=== PATIENT | female | born 2000 | race Caucasian/White ===

== ENCOUNTER 2024-12-15 13:22 | Outpatient (CLI) | payer SELFPAY ==
--- OUTSIDE RECORDS SUMMARY | 2024-11-08 13:00 | XMS_ITS | Encounter Summary ---
Author Organization Healthcare Address [address] [place] [address] Care Team Providers Care Private Wealth Advisor Name Role Phone Susie Shoemaker DO Primary Care Provider Reason for Referral * Imaging (Routine) - Pending Review Specialty Diagnoses / Procedures Referred By Contac t Referred To Contact Radiology Diagnoses Swelling of lower extremity Procedures CT Venogram Abdomen Pelvis Monico Staley MD [address] [address] Phone: tel: fax: Referral ID Status Reason Start Date Expiration Date V isits Requested Visits Authorized [id number] Pending Review 11/08/2024 05/10/2026 1 1 * Consultation (Routine) - Closed Specialty Diagnoses / Procedures Referred By Contac t Referred To Contact General, Endocrine & Minimally Invasive Surgery / Bariatrics Diagnoses Morbid obesity with BMI of 40.0-44.9, adult (CMS/[facility]) Monico Staley MD [address] [facility] [address] [place] [address] Phone: tel: fax: [facility] [address] [place] [address] Phone: tel: Referral ID Status Reason Start Date Expiration Date V isits Requested Visits Authorized [id number] Closed Specialty Services Required 11/08/2024 05/10/2026 1 1 Scheduling Instructions Consult to discuss weight loss and possible surgery Dr. 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 Nina Hernández, CATEGORY DEVELOPMENT MANAGER [address] [facility] [address] [place] [address] Phone: tel: fax: Referral ID Status Reason Start Date Expiration Date V isits Requested Visits Authorized [id number] Closed Consult and Treat 09/21/2024 03/23/2026 1 1 Encounter Details Date Type Department Care Team (Latest Contact Info) Description 11/08/2024 1:00 PM EDT Office Visit [facility] [address] [facility] 5th Floor [address] [place] [address] Monico Staley MD [address] [facility] [address] [place] [address] Morbid obesity with BMI of 40.0-44.9, adult (CMS/HCC) (Primary Dx); Swelling of lower extremity; Left leg swelling Social History Tobacco Use Types Packs/Day Years Used Date Smoking Tobacco: Never Passive Smoke Exposure: Never Smokeless Tobacco: Never Comments:Vape Alcohol Use Standard Drinks/Week Comments Not Currently 0 (1 standard drink = 0.6 oz pur e alcohol) PHQ-2 Answer Date Recorded Patient Health Questionnaire-2 Score 0 08/16/2024 [place] Depression Scale Answer Date Recorded [place] Depression Scale Total 2 04/02/2023 The thought of harming myself has occurred to me . Never 04/02/2023 PHQ-9 Answer Date Recorded Patient Health Questionnaire-9 Score 0 08/16/2024 AUDIT-C Answer Date Recorded Frequency of Alcohol Consumption Not on file 11/08/2024 Q2: How many drinks containi ng alcohol do you have on a typical day when you are drinking? Patient does not drink Frequency of Binge Drinking Not on file 10/19 PHQ-2A Answer Date Recorded Patient Health Questionnaire-2 Score 0 03/18/2023 Comments No Sex and Gender Information Value Date Recorded Sex Assigned at Not on file Legal Sex Female 8:50 PM EDT Gender Identity Not on file Sexual Orientation Not on file documented as of this encounter Last Filed Vital Signs Vital Sign Reading Time Taken Comments Blood Pressure 115/76 11/08/2024 12:49 PM EDT Pulse 81 11/08/2024 12:42 PM EDT Temperature 36.9 C (98.4 F) 11/08/2024 12:42 PM EDT Respiratory Rate - - Oxygen Saturation 97% 11/08/2024 12:42 PM EDT Inhaled Oxygen Concentration - - Weight 107 kg (236 lb 12.4 oz) 11/08/2024 12:42 PM EDT Height 160 cm (5' 3 ) 11/08/2024 12:42 PM EDT Body Mass Index 41.94 11/08/2024 12:42 PM EDT documented in this encounter Functional Status documented as of this encounter Miscellaneous Notes * Progress Notes - Meagan Greene MD - 11/08/2024 1:00 PM EDT Dear Susie Shoemaker, , HPI We had the pleasure of seeing your patient, Zuly Mendoza, in clinic today as a consult for possible May Thurner syndrome. Patient recently underwent pelvic MRI as workup for pelvic and joint pain, which was read as heterogenous signal within focally ectatic L common iliac vein measuring upto 2.9cm. She was referred to Vascular surgery for further evaluation. Patient states that she has had fairly chronic back pain and lower extremity joint pain. She follows with Rheumatology and reports that they think she has Lupus. She notes that almost every day she develops swelling in her bilateral legs by the end of the day, and the left leg is always worse than the right. She states that about 1 month ago she had severe pain in her left hip and upper leg and was seen at an ED and had a CT scan done. She denies being diagnosed with DVT and states that she was sent home from the ED and her symptoms resolved. She has never had a DVT in the past, and does not take blood thinners. I personally and independently reviewed the MR Images from today's visit which showed: some Her chronic comorbid conditions that impact our treatment planning include: Obesity - needs improvement, with a last BMI of: Body mass index is 41.94 kg/m??. The following portions of the chart were reviewed this encounter and updated as appropriate: Subjective Review of Systems A 14 point review of systems was completed and is negative except what is stated in HPI/interval history. Objective Physical Exam Constitutional: well developed, well nourished, and in no acute distress Eye: equal and round Ears, Nose, Throat: normal atraumatic, no neck masses Respiratory: No chest wall tenderness., symmetric chest rise, room air Cardiac: Heart regular rate and rhythm Musculoskeletal: normal strength, tone, and muscle mass, no deformities, L leg mid-claf circumference 51cm, R leg 50cm Psychiatric: oriented to time, place and person, mood and affect are within normal limits Neurologic: normal and motor intact Skin: [place], warm, well perfused Assessment/Plan In Summary: Zuly Mendoza is a 24 y.o. year old female who we saw today in clinic in consultation for possible May Thurner syndrome. Patient has had persistent intermittent pelvic and left legpain as well as bilateral lower extremity swelling, L>R which could possibly be attributed to May Thurner. The MR is not the idea test to evaluate the venous system. We discussed the physiology ofMay Thurner, and the possible treatments. Given she is of child- bearing age, we would like to avoidstenting the iliac vein. We also discussed that her weight is likely contributing to the compression on her venous system, and that weight loss alone may alleviate her symptoms. - follow up in [address] venogram of Abdomen and pelvis - referral to bariatric surgery - patient was given measuring tape to measure her bilateral calves and record measurements - continue to elevate the legs as much as possible and use compression stockings Below is a summary of the diagnoses addressed in today's visit and any associated orders: Problem List Items Addressed This Visit Left leg swelling Other Visit Diagnoses Morbid obesity with BMI of 40.0-44.9, adult ([facility]) - Primary Relevant Orders Ambulatory referral to Bariatric Surgery ([facility]) Swelling of lower extremity Relevant Orders CT Venogram Abdomen Pelvis We will see her back for: Follow up in about 3 months (around 02/08/2025). The patient was counseled on the importance of: - proper nutrition, exercise and maintaining a healthy weight. Weight loss Cosigned by Monico Staley MD at 11/10/2024 2:50 PM EDT Associated attestation - Monico Staley MD - 11/10/2024 2:50 PM EDT I saw and evaluated the patient with the resident/fellow. I discussed the case with the resident/fellow and agree with the findings and plan as documented. documented in this encounter Plan of Treatment Upcoming Encounters Date Type Department Care Team (Late st Contact Info) Description 02/21/2025 7:50 AM EST Office Visit [facility] [address] [place] [address] Nina Hernández APRN [address] [place] [address] 02/22/2025 10:40 AM EST Office Visit [facility] [address] [place] [address] Monico Staley MD [address] [facility] [address] [place] [address] 05/31/2025 9:45 AM EST Procedure Visit Obstetrics & Gynecology [address] [place] [address] Kehinde Bowie MD [address] [place] [address] Scheduled Orders Name Type Priority Associated Diagnoses Orde r Schedule CT Venogram Abdomen Pelvis Imaging Routine Swelling of lower extremity 1 Occurrences starting 11/08/2024 until 02/08/2025 Scheduled Referrals Name Type Priority Associated Diagnoses Order Schedule Ambulatory referral to Bariatric Surgery ([facility]) Outpatient Referral Routine Morbid obesity with BMI of 40.0-44.9, adult ([facility]) Expected: 11/08/2024 (Approximate), Expires: 05/12/2026 documented as of this encounter Goals Goal Patient Goal Type Associated Problems Recent Progress Patient-Stated? Author Delayed Delivery Care Plan CPM S22 PP LABOR (OBSTETRICS) No Open Scheduling, Background documented as of this encounter Visit Diagnoses Diagnosis Morbid obesity with BMI of 40.0-44.9, adult ([facility])- Primary Swelling of lower extremity Left leg swelling documented in this encounter Additional Health Concerns Active Problems Noted Date Diagnosed Date CPM S22 PP LABOR (OBSTETRICS) 12/06/2022 Assessment Noted Time PHQ-9 Depression Total Score: 0 08/17/19 25 7:28 AM EDT A fall risk assessment has been complete d for the patient 08/16/2024 7:28 AM EDT A Body Mass Index follow-up plan has been documented for the patient 11/10/2024 2:50 PM EDT documented as of this encounter Care Teams Private Wealth Advisor Relationship Specialty Start Date End Date Susie Shoemaker DO [address] [place] [address] PCP - General 02/07/21 documented as of this encounter
--- OUTSIDE RECORDS SUMMARY | 2024-12-01 09:30 | XMS_ITS | Encounter Summary ---
Author Organization [facility] Address [address] [place] [address] Care Team Providers Care Datastage Consultant Name Role Phone Susie Shoemaker DO Primary Care Provider [phone] Reason for Visit * Reason Comments Obesity * Pre-determination (Routine) - Closed Specialty Diagnoses / Procedures Referred By Contcyndy t Referred To Contact Bariatrics Diagnoses Morbid (severe) obesity due to excess calories Procedures WI LAP, VANESA RESTRICT PROC, LONGITUDINAL GASTRECTOMY WI LAP GASTRIC BYPASS/KRISTEL-EN-Y [facility] [address] [place] [address] Phone: tel: [facility] [address] [place] [address] Phone: tel: Referral ID Status Reason Start Date Expiration Date Visits Re quested Visits Authorized [id number] Closed 11/21/2024 05/23/2026 1 1 Encounter Details Date Type Department Care Team (Late st Contact Info) Description 12/01/2024 9:30 AM EDT Office Visit [facility] [address] [place] [address] Cari Douglas, HARDWARE INSTALLATION COORDINATOR [address] [phone] Obesity, Class III, BMI 40-49.9 (morbid obesity) (Primary Dx); Multiple joint pain; Shortness of breath on exertion; Gastroesophageal reflux disease, unspecified whether esophagitis present; Fatigue, unspecified type Social History Tobacco Use Types Packs/Day Years Used Date Smoking Tobacco: Never Passive Smoke Exposure: Never Smokeless Tobacco: Former Quit: 11/22/2024 Tobacco Cessation:Counseling Given: Not Answered Comments:Stopped vaping nicotine 11/22 Alcohol Use Standard Drinks/Week Comments Not Currently 0 (1 standard drink = 0.6 oz pur e alcohol) PHQ-2 Answer Date Recorded Patient Health Questionnaire-2 Score 0 12/01/2024 [place] Depression Scale Answer Date Recorded [place] Depression Scale Total 2 04/02/2023 The thought of harming myself has occurred to me . Never 04/02/2023 PHQ-9 Answer Date Recorded Patient Health Questionnaire-9 Score 0 12/01/2024 AUDIT-C Answer Date Recorded Q1: How often do you have a drink containing alcohol? Never 12/01/2024 Q2: How many drinks containi ng alcohol do you have on a typical day when you are drinking? Patient does not drink Q3: How often do you have si x or more drinks on one occasion? Never 12/01/2024 PHQ-2A Answer Date Recorded Patient Health Questionnaire-2 Score 0 03/18/2023 Comments No Sex and Gender Information Value Date Recorded Sex Assigned at Not on file Legal Sex Female 8:50 PM EDT Gender Identity Not on file Sexual Orientation Not on file documented as of this encounter Last Filed Vital Signs Vital Sign Reading Time Taken Comments Blood Pressure 110/75 12/01/2024 9:15 AM EDT Pulse 50 12/01/2024 9:15 AM EDT Temperature - - Respiratory Rate 16 12/01/2024 9:15 AM EDT Oxygen Saturation 97% 12/01/2024 9:15 AM EDT Inhaled Oxygen Concentration - - Weight 102 kg (225 lb) 12/01/2024 9:15 AM EDT Height 158.8 cm (5' 2.5 ) 12/01/2024 9:15 AM EDT Body Mass Index 40.5 12/01/2024 9:15 AM EDT documented in this encounter Functional Status * AUDIT-C Score Answer Date of Assessment Author 0 12/01/2024 9:15 AM EDT Teodora Barrow * Question Answer Date of Assessment Author Q1: How often do you have a drink containing alcohol? Never 12/01/2024 9:15 AM Teodora Engel Q2: How many drinks containing alcohol do you have on a typical day when you are drinking? Patient does not drink 12/01/2024 9:15 AM Teodora Engel Q3: How often do you have six or more drinks on one occasion? Never 12/01/2024 9:15 AM EDT Teodora Barrow * Over the past 2 weeks, how often have you been bothered by any of the following problems? Question Answer Date of Assessment Author Little interest or pleasure in doing things Not at all 12/01/2024 9:12 AM Teodora Arce Feeling down, depressed, or hopeless Not at all 12/01/2024 9:12 AM Teodora Engel Patient Health Questionnaire-2 Score 0 12/01/2024 9:12 AM AMANDAT Teodora Barrow * Question Answer Date of Assessment Author Trouble falling or staying asleep, or sleeping too much Not at all 12/01/2024 9:12 AM Teodora Engel Feeling tired or having little energy Not at all 12/01/2024 9:12 AM Teodora Engel Poor appetite or overeating Not at all 12/01/2024 9: 12 AM AMANDAT Teodora Barrow Feeling bad about yourself - or that you are a failure or have let yourself or your family down Not at all 12/01/2024 9:12 AM Teodora Engel Trouble concentrating on things, such as reading the newspaper or watching television Not at all 12/01/2024 9:12 AM Teodora Engel Moving or speaking so slowly that other people could have noticed? Or the opposite - being so fidgety or restless that you have been moving around a lot more than usual. Not at all 12/01/2024 9:12 AM Teodora Engel Thoughts that you would be better off or hurting yourself in some way Not at all 12/01/2024 9:12 AM AMANDAT Teodora Barrow Patient Health Questionnaire-9 Score 0 12/01/2024 9:12 AM AMANDAT Teodora Barrow * If you checked off any problems on this questionnaire so far, Question Answer Date of Assessment Author How difficult have these problems made it for you to do your work, take care of things at home, or get along with other people? Not difficult at all 12/01/2024 9:12 AM AMANDAT Teodora Barrow documented as of this encounter Miscellaneous Notes * Progress Notes - Cari Douglas, HARDWARE INSTALLATION COORDINATOR - 12/01/2024 9:30 AM EDT Reason for Visit Obesity HPI History as per patient report is for long standing struggle with morbid obesity and related co-morbidities as indicated. Dietary history per previous documentation. Patient is seeking medical evaluation for medical weight loss. Patient is being seen today in clinic. 24 y/o female presents to [facility]. She is interested in medical weight loss. 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 Auto immune disease, GERD, joint pain, fatigue, SOA with exertion, anxiety, depression and Bipolar. She has acid reflux every other day and takes Famotidine PRN. She has some dysphagia with foods at times. She denies abdominal pain, nausea or vomiting. She denies fevers or chi lls. She has some lower extremity edema. She has never had an EGD. She generally takes NSAIDS twiceper week. Prior abdominal sx: laparoscopic appendectomy and laparoscopic ovarian cyst removal. Pt denies hx: pancreatitis or MENS x 2 Pt does not drink any alcohol Quit vaping 11/22 Current Weight: 102 kg (225 lb) Height: 1.588 m (5' 2.5 ) BMI: 40.50 kg/m?? Highest Weight: 235 Lowest Weight: 150 Greatest Weight Loss Achieved in a Single Diet Attempt: 10 [place] body weight: 51.3 kg (112 lb 15.8 oz) Adjusted ideal body weight: 71.6 kg (157 lb 12.7 oz) Unsupervised Diet Attempts: High Protein, Calorie Counting, and Low Carbohydrate Supervised Diet Attempts: phentermine Aldo Mendoza has been overweight for at least 6 years. The most weight loss was 10 pounds but it was unable to be maintained. Past Medical History[1] Surgical History[2] Allergies[3] Current Outpatient Medications Medication Instructions baclofen (LIORESAL) 10 mg, 3 times daily benzonatate (Tessalon) 200 MG capsule PLEASE SEE ATTACHED FOR DETAILED DIRECTIONS cetirizine (ZYRTEC) 10 mg, Daily escitalopram (LEXAPRO) 10 mg, Oral, Daily fluticasone (Flonase) 50 MCG/ACT nasal spray 1 spray, Daily PRN hydroxychloroquine (PLAQUENIL) 200 mg, Oral, 2 times daily levonorgestrel (Mirena) 20 MCG/DAY IUD 1 each, Once Mounjaro 2.5 mg, Subcutaneous, Weekly norgestimate-ethinyl estradiol (Sprintec 28) 0.25-35 MG-MCG tablet 1 tablet, Oral, Daily Nurtec 75 MG orally disintegrating tablet 1 TABLET BY MOUTH NEEDED (QTY 8 [EIGHT]) predniSONE (Deltasone) 5 MG tablet Take 1-3 tabs as needed for flares. SUMAtriptan (Imitrex) 50 MG tablet TAKE 1 TABLET BY MOUTH AT HEADACHE ONSET. MAY REPEAT IN 2 HRS. MAX 4 TABS PER DAY Topiramate ER 25 MG capsule sustained-release 24 hr 1 tablet, Daily traMADol (ULTRAM) 50 mg, 3 times daily Wegovy 0.25 mg, Subcutaneous, Weekly Family History[4] Social History[5] ROS 14 point ROS completed and negative except as noted in the HPI Objective Vitals: 12/01/24 0915 BP: 110/75 Pulse: 50 Resp: 16 SpO2: 97% PHYSICAL EXAM Constitutional: well developed, well nourished, in no acute distress, and obese Eyes: equal, round, and reactive Ears, Nose, Throat: normal atraumatic, no neck masses Respiratory: Normal Effort, Normal Rate Cardiac: Heart regular rate and rhythm Abdomen: Soft, non-tender; no organomegaly or masses. Genitourinary: not indicated Musculoskeletal: normal strength, tone, and muscle mass, no deformities Psychiatric: oriented to time, place and person, mood and affect are within normal limits Neurologic: motor intact and no focal deficits Skin: [place], warm, well perfused Assessment/Plan Diagnosis Plan 1. Obesity, Class III, BMI 40-49.9 (morbid obesity) CBC and Differential Vitamin B1, Whole Blood Protime-INR Serum Drug Screen Nicotine and Metabolites, Serum or Plasma, Quantitative Comprehensive Metabolic Panel, Plasma Free T4, Plasma Hemoglobin A1c Iron, Plasma Lipid Profile, Plasma Thyroid Stimulating Hormone, Plasma Vitamin B12, Serum Vitamin D 25 Hydroxy Vitamin E, Serum or Plasma Vitamin K Vitamin A (Retinol), Serum or Plasma Folate, Serum 2. Multiple joint pain CBC and Differential Vitamin B1, Whole Blood Protime-INR Serum Drug Screen Nicotine and Metabolites, Serum or Plasma, Quantitative Comprehensive Metabolic Panel, Plasma Free T4, Plasma Hemoglobin A1c Iron, Plasma Lipid Profile, Plasma Thyroid Stimulating Hormone, Plasma Vitamin B12, Serum Vitamin D 25 Hydroxy Vitamin E, Serum or Plasma Vitamin K Vitamin A (Retinol), Serum or Plasma Folate, Serum 3. Shortness of breath on exertion CBC and Differential Vitamin B1, Whole Blood Protime-INR Serum Drug Screen Nicotine and Metabolites, Serum or Plasma, Quantitative Comprehensive Metabolic Panel, Plasma Free T4, Plasma Hemoglobin A1c Iron, Plasma Lipid Profile, Plasma Thyroid Stimulating Hormone, Plasma Vitamin B12, Serum Vitamin D 25 Hydroxy Vitamin E, Serum or Plasma Vitamin K Vitamin A (Retinol), Serum or Plasma Folate, Serum 4. Gastroesophageal reflux disease, unspecified whether esophagitis present CBC and Differential Vitamin B1, Whole Blood Protime-INR Serum Drug Screen Nicotine and Metabolites, Serum or Plasma, Quantitative Comprehensive Metabolic Panel, Plasma Free T4, Plasma Hemoglobin A1c Iron, Plasma Lipid Profile, Plasma Thyroid Stimulating Hormone, Plasma Vitamin B12, Serum Vitamin D 25 Hydroxy Vitamin E, Serum or Plasma Vitamin K Vitamin A (Retinol), Serum or Plasma Folate, Serum 5. Fatigue, unspecified type CBC and Differential Vitamin B1, Whole Blood Protime-INR Serum Drug Screen Nicotine and Metabolites, Serum or Plasma, Quantitative Comprehensive Metabolic Panel, Plasma Free T4, Plasma Hemoglobin A1c Iron, Plasma Lipid Profile, Plasma Thyroid Stimulating Hormone, Plasma Vitamin B12, Serum Vitamin D 25 Hydroxy Vitamin E, Serum or Plasma Vitamin K Vitamin A (Retinol), Serum or Plasma Folate, Serum Pt is interested in GLP1 medication. Denies hx pancreatitis or MENS x 2. She is not sure if medication is covered by insurance. Discussed side effect potential including but not limited to: abdominalpain, nausea, vomiting, constipation and injection site reaction. Will see dietitian. Follow up in 1 month. Follow up in about 1 month (around 01/01/2025). [1] Past Medical History: Diagnosis Date COVID-19 10/02/2020 Elevated C-reactive protein (CRP) Migraines Personal history of other diseases of the respiratory system History of influenza [2] Past Surgical History: Procedure Laterality Date APPENDECTOMY N/A Appendectomy from [facility] KNEE SURGERY N/A Knee Surgery from [facility] OVARIAN CYST REMOVAL Right 2014 TONSILLECTOMY N/A Tonsillectomy from [facility] [3] No Known Allergies [4] Family History Problem Relation Name Age of Onset Autoimmune disease Mother Hypertension, benign Father Hyperlipidemia Father Graves' disease Father No Known Problems Sister Hypertension, benign Brother No Known Problems Son No Known Problems Mother's Sister Hypertension, benign Father's Sister Migraines Father's Sister Thyroid disease Father's Sister Kidney disease Maternal Grandmother Mental illness Maternal Grandmother Melanoma Maternal Grandmother Hypertension, benign Maternal Grandfather Hyperlipidemia Paternal Grandmother Kidney disease Paternal Grandmother Hypertension, benign Paternal Grandmother Heart failure Paternal Grandmother Heart attack Paternal Grandfather [5] Social History Tobacco Use Smoking status: Never Passive exposure: Never Smokeless tobacco: Former Quit date: 11/22/2024 Tobacco comments: Stopped vaping nicotine 11/22 Vaping Use Vaping status: Former Start date: 04/20/2015 Quit date: 11/22/2024 Devices: Disposable Substance Use Topics Alcohol use: Not Currently Drug use: Never * Progress Notes - Rossy Coles LD - 12/01/2024 9:30 AM EDT Aldo Mendoza, 2000, presents today for consultation for the medical weight loss program. Initial dietitian consultation to initiate medically supervised weight loss program. The patient will be participating in medically supervised weight loss program with short-term and long-term goalcreation. [place]ita Scale Results: Consult Height: 5 ft 2.5 in Consult Weight: 225.0 lbs. Fat %: 48.3% Fat Mass: 108.6 lbs. FFM: 116.4 lbs. TBW: 85.4 lbs. TBW %: 38.0% BMR: 1703 kcal BMI: 40.5 kg/m?? [place] Body Weight: 51.3 kg (112 lb 15.8 oz) Adjusted [place] Body Weight: 71.6 kg (157 lb 12.7 oz) body composition results were discussed and reviewed to the patient Patient Education: The patient was informed of mandatory nutrition class to be educated on lifestyle changes to be successful in the medical weight loss program; was signed up for the 12/15/2024 class. The patient was informed about the importance of a high protein, low carbohydrate, and low fat dietary lifestyle change. The patient was informed to consume a protein supplement if a meal is skipped. The patient was informed to take a multivitamin daily (once she is taking the weight loss medication). The patient was informed of fiber-rich carbohydrates, such as beans, corn, whole grains, fruits, and non-starchy vegetables; encouraged to aim for 25 grams of fiber daily. Short Term Goal Evaluation in Preparation for Next Visit: The patient instructed to track consumption consistently using the eMinor nia for one week using regular eating habits and send report [email or web address] e-mail to be reviewed. The nutritional recommendations will be sent backto begin lifestyle adjustments after review of typical eating pattern. documented in this encounter Plan of Treatment Upcoming Encounters Date Type Department Care Team (Late st Contact Info) Description 02/21/2025 7:50 AM EST Office Visit [facility] Medicine Specialties [address] [place] [address] Nina Hernández APRN [address] [facility] [address] [place] [address] 02/22/2025 10:40 AM EST Office Visit [facility] Comprehensive [facility] [address] [place] [address] Monico Staley MD [address] [facility] [address] [place] [phone] 05/31/2025 9:45 AM EST Procedure Visit [facility]necology [address] [place] [address] Kehinde Bowie MD [address] [place] [address] documented as of this encounter Goals Goal Patient Goal Type Associated Problems Recent Progress Patient-Stated? Author Delayed Delivery Care Plan CPM S22 PP LABOR (OBSTETRICS) No Open Scheduling, Background documented as of this encounter Results * Folate, Serum (12/01/2024 10:22 AM EDT) Folate, Serum 13.5 >4.6 ng/mL 12/01/2024 1:40 PM EDT [facility] Blood Venous blood specimen / Unknown Venipuncture / Unknown 12/01/2024 10:22 AM EDT 12/01/2024 10:25 AM EDT Cari Douglas HARDWARE INSTALLATION COORDINATOR LAB BLOOD ORDERABLES Mary Anne l Result [facility] [address] [place] [address] * Vitamin A (Retinol), Serum or Plasma (12/01/2024 10:22 AM EDT) Vitamin A (Retinyl Palmitate) <0.02 0.00 - 0.10 mg/L 12/04/2024 11:57 AM EDT [facility] ([facility] VITAMIN A,SER/VENUS-INTE RPRETATION Normal 12/04/2024 11:57 AM EDT [facility] Vitamin A (Retinol) 0.48 0.30 - 1.20 mg/L 12/04/2024 11:57 AM EDT [facility] Fasting greater than or equal to 12 hours? 12/04/2024 11:57 AM EDT [facility] Blood Venous blood specimen / Unknown Venipuncture / Unknown 12/01/2024 10:22 AM EDT 12/01/2024 10:25 AM EDT Narrative [facility]) - 12/04/2024 11:57 AM EDT This test was developed and its performance characteristics determined by [facility]. It has not been cleared or approved by the [place] Food and Drug Administration. This test was performed in a CLIA certified laboratory and is intended for clinical purposes. Performed By: [place] [address] Sample Cutter: Maynor Scott MD, PhD CLIA Number: [id number] Cari Douglas APRN LAB BLOOD ORDERABLES Mary Anne l Result Performing Organization Address City/[facility]/ZIP Co de Phone Number [facility] ([facility]) [address] [place] [address] * Vitamin K (12/01/2024 10:22 AM EDT) [facility] VITAMIN K RESULT 0.44 0.22 - 4.88 nmol/L 12/05/2024 3:17 PM EDT [facility] ([facility]) Serum Venous blood specimen / Unknown 12/01/2024 10:22 AM EDT 12/01/2024 10:25 AM EDT Narrative [facility]) - 12/05/2024 3:17 PM EDT INTERPRETIVE INFORMATION: Vitamin K1, Serum Vitamin K concentration is reported as nanomoles per liter (nmol/L). To convert concentration to nanograms per milliliter (ng/mL), multiply the result by 0.45. This test was developed and its performance characteristics determined by [facility]. It has not been cleared or approved by the [place] Food and Drug Administration. This test was performed in a CLIA certified laboratory and is intended for clinical purposes. Performed By: [facility] [address] [place] [address] Sample Cutter: Maynor Scott MD, PhD CLIA Number: [id number] Cari Douglas APRN LAB BLOOD ORDERABLES Mary Anne l Result Performing Organization Address City/[facility]/ZIP Co de Phone Number [facility] ([facility]) [address] [place] [address] * Vitamin E, Serum or Plasma (12/01/2024 10:22 AM EDT) Vitamin E (Alpha-Tocophe rol) 7.9 5.5 - 18.0 mg/L 12/04/2024 11:57 AM EDT [facility] ([facility]) Vitamin E (Gamma-Tocophe rol) 0.9 0.0 - 6.0 mg/L 12/04/2024 11:57 AM EDT [facility] ([facility]) Fasting greater than or equal to 12 hours? 12/04/2024 11:57 AM EDT [facility] ([facility]) Blood Venous blood specimen / Unknown Venipuncture / Unknown 12/01/2024 10:22 AM EDT 12/01/2024 10:25 AM EDT Narrative [facility] ([facility]) - 12/04/2024 11:57 AM EDT This test was developed and its performance characteristics determined by [facility]. It has not been cleared or approved by the US Food and Drug Administration. This test was performed in a CLIA certified laboratory and is intended for clinical purposes. Performed By: [facility] [address] [place] [address] Sample Cutter: Maynor Scott MD, PhD CLIA Number: [id number] Cari Douglas HARDWARE INSTALLATION COORDINATOR LAB BLOOD ORDERABLES Mary Anne cancino Result [facility]) [address] [id number] * Vitamin D 25 Hydroxy (12/01/2024 10:22 AM EDT) Pathologist [facility] Vitamin D 25 Hydroxy 29.7 20.0 - 80.0 ng/mL 12/01/2024 1:58 PM EDT [facility] Blood Venous blood specimen / Unknown Venipuncture / Unknown 12/01/2024 10:22 AM EDT 12/01/2024 10:25 AM EDT Narrative [facility] - 12/01/2024 1:58 PM EDT Testing performed on [employer], standardized against NIST SRM 2972. When testing samples from patients whose predominant form of vitamin D is vitamin D2, such as patients receiving vitamin D2 supplementation, results that are subtherapeutic should be confirmed with another method, such as LC-MS/MS, before being used for patient management. Vitamin D, 25-Hydroxy reference range, age 18 years and up: Deficiency: <12 ng/mL Insufficiency: 12 to 19 ng/mL Sufficiency: 20 to 80 ng/mL Possible toxicity: >100 ng/mL Cari Douglas HARDWARE INSTALLATION COORDINATOR LAB BLOOD ORDERABLES Mary Anne l Result Performing Organization Address City/[facility]/ZIP Co de Phone Number [facility] [address] [place] [address] * Vitamin B12, Serum (12/01/2024 10:22 AM EDT) Vitamin B12, Serum 399 210 - 1,033 pg/mL 12/01/2024 1:40 PM EDT [facility] Blood Venous blood specimen / Unknown Venipuncture / Unknown 12/01/2024 10:22 AM EDT 12/01/2024 10:25 AM EDT Cari Douglas HARDWARE INSTALLATION COORDINATOR LAB BLOOD ORDERABLES Mary Anne l Result Performing Organization Address [facility] [place] [address] * Thyroid Stimulating Hormone, Plasma (12/01/2024 10:22 AM EDT) Thyroid Stimulating Hormone, Plasma 3.07 0.40 - 4.20 uIU/mL 12/01/2024 1:34 PM EDT [facility] Blood Venous blood specimen / Unknown Venipuncture / Unknown 12/01/2024 10:22 AM EDT 12/01/2024 10:25 AM EDT Narrative [facility] - 12/01/2024 1:34 PM EDT Trimester Specific Ranges TSH ( IU/mL) 1st Trimester 0.1 - 3.0 2nd Trimester 0.19 - 4.06 3rd Trimester 0.3 - 3.7 Cari Douglas HARDWARE INSTALLATION COORDINATOR LAB BLOOD ORDERABLES Mary Anne l Result Performing Organization Address City/[facility]/ZIP Co de Phone Number [facility] [address] [place] [address] * (ABNORMAL) Lipid Profile, Plasma (12/01/2024 10:22 AM EDT) Cholesterol, Plasma 185 <200 mg/dL 12/01/2024 1:34 PM EDT [facility] Comment: Cholesterol Reference Range (age >17 years): Desirable <200 mg/dL Borderline 200 to 239 mg/dL Undesirable >239 mg/dL HDL 56 >=50 mg/dL 12/01/2024 1:34 PM EDT [facility] Comment: HDL Cholesterol Reference Ranges (age >17 years): Female, acceptable > or = 50 mg/dL Male, acceptable > or = 40 mg/dL Triglycerides, Plasma 97 <150 mg/dL 12/01/2024 1:34 PM EDT [facility] Comment: Triglyceride Reference Range (age >17 years): Desirable: <150 mg/dL Borderline high: 150 to 199 mg/dL High: 200 to 499 mg/dL Very high: >499 mg/dL Increased risk of pancreatitis: >1000 mg/dL Cholesterol/HDL Ratio 3 12/01/2024 1:34 PM EDT [facility] LDL, Calculated 111(H) <100 mg/dL 1:34 PM EDT [facility] Comment: LDL Cholesterol Reference Range (age >17 years): Optimal: <100 mg/dL Near or above optimal: 100 - 129 mg/dL Borderline high: 130 - 159 mg/dL High: 160 - 189 mg/dL Very high: >189 mg/dL LDL Cholesterol Reference Range (age <18 years): Desirable: <110 mg/dL Borderline: 110 - 129 mg/dL Undesirable: >130 mg/dL LDL Cholesterol is calculated using the Dave/NIH equation. Fasting greater than or equal to 12 hours? Yes 12/01/2024 1:34 PM EDT [facility] Blood Venous blood specimen / Unknown Venipuncture / Unknown 12/01/2024 10:22 AM EDT 12/01/2024 10:25 AM EDT us Cari Douglas HARDWARE INSTALLATION COORDINATOR LAB BLOOD ORDERABLES Mary Anne cancino Result [facility] [address] [place] [address] * Iron, Plasma (12/01/2024 10:22 AM EDT) Iron, Plasma 76 30 - 160 ug/dL 12/01/2024 1:34 PM EDT [facility] Blood Venous blood specimen / Unknown Venipuncture / Unknown 12/01/2024 10:22 AM EDT 12/01/2024 10:25 AM EDT Cari Douglas HARDWARE INSTALLATION COORDINATOR LAB BLOOD ORDERABLES Mary Anne l Result Performing Organization Address [facility] Co de Phone Number [facility] [address] [place] [address] * Hemoglobin A1c (12/01/2024 10:22 AM EDT) Hemoglobin A1c 5.0 <5.7 % 12/01/2024 3:20 PM EDT [facility] Blood Venous blood specimen / Unknown Venipuncture / Unknown 12/01/2024 10:22 AM EDT 12/01/2024 10:25 AM EDT Narrative [facility] - 12/01/2024 3:20 PM EDT HA1C Interpretive Data: Diagnosis of Diabetes: Diabetic > or = 6.5% Pre-diabetic 5.7 to 6.4% Non-diabetic < or = 5.6% Glycemic Targets for Type I and Type II Diabetics: Non- Adults <7.0% Adults <6.0% Children and Adolescents <7.5% Source: [place] [employer]. Standards of medical care in diabetes,2017. Diabetes Care.2017:40 (suppl 1):S1-S135. Cari Douglas HARDWARE INSTALLATION COORDINATOR LAB BLOOD ORDERABLES Mary Anne l Result Performing Organization Address [facility]/ZIP Co de Phone Number [facility] [address] [place] [address] * Free T4, Plasma (12/01/2024 10:22 AM EDT) Free T4, Plasma 1.2 0.8 - 1.7 ng/dL 12/01/2024 1:34 PM EDT [facility] Blood Venous blood specimen / Unknown Venipuncture / Unknown 12/01/2024 10:22 AM EDT 12/01/2024 10:25 AM EDT Narrative [facility] - 12/01/2024 1:34 PM EDT Free T4 Trimester Specific Ranges 1st Trimester 0.9 - 1.50 ng/dL 2nd Trimester 0.7 - 1.40 ng/dL 3rd Trimester 0.7 - 1.24 ng/dL us Cari Douglas HARDWARE INSTALLATION COORDINATOR LAB BLOOD ORDERABLES Mary Anne cancino Result [facility] [address] [place] [address] * Comprehensive Metabolic Panel, Plasma (12/01/2024 10:22 AM EDT) Glucose, Plasma 86 74 - 99 mg/dL 12/01/2024 1:34 PM EDT [facility] BUN, Plasma 11 7 - 21 mg/dL 12/01/2024 1:34 PM EDT [facility] Creatinine, Plasma 0.76 0.60 - 1.10 mg/dL 12/01/2024 1:34 PM EDT [facility] BUN/Creatinine Ratio 14 12/01/2024 1:34 PM EDT [facility] Sodium, Plasma 137 136 - 145 mmol/L 12/01/2024 1:34 PM EDT [facility] Potassium, Plasma 4.0 3.6 - 4.9 mmol/L 12/01/2024 1:34 PM EDT [facility] Chloride, Plasma 104 97 - 107 mmol/L 12/01/2024 1:34 PM EDT [facility] CO2, Plasma 24 22 - 29 mmol/L 12/01/2024 1:34 PM EDT [facility] Anion Gap 9 6 - 16 mmol/L 12/01/2024 1:34 PM EDT [facility] Total Calcium, Plasma 9.5 8.9 - 10.2 mg/dL 12/01/2024 1:34 PM EDT [facility] Total Protein 7.2 6.3 - 7.9 g/dL 12/01/2024 1:34 PM EDT [facility] Albumin, Plasma 4.5 3.5 - 5.2 g/dL 12/01/2024 1:34 PM EDT [facility] AST, Plasma 15 10 - 35 U/L 12/01/2024 1:34 PM EDT [facility] ALT, Plasma 17 10 - 35 U/L 12/01/2024 1:34 PM EDT [facility] Alkaline Phosphatase, Plasma 73 35 - 104 U/L 12/01/2024 1:34 PM EDT [facility] Total Bilirubin, Plasma 0.3 0.2 - 1.1 mg/dL 12/01/2024 1:34 PM EDT [facility] eGFRcr 111.0 mL/min/1.7 3m*2 12/01/2024 1:34 PM EDT [facility] Comment:Reported eGFRcr in m L/min/1.73m2 is based the CKD-EPI 2020 equation that does not use a race coefficient. Blood Venous blood specimen / Unknown Venipuncture / Unknown 12/01/2024 10:22 AM EDT 12/01/2024 10:25 AM EDT us Cari Douglas HARDWARE INSTALLATION COORDINATOR LAB BLOOD ORDERABLES Mary Anne cancino Result [facility] [address] [place] [address] * Nicotine and Metabolites, Serum or Plasma, Quantitative (12/01/2024 10:22 AM EDT) NICOTINE <5 <5 ng/mL 12/05/2024 10:28 AM EDT [facility] Cotinine <5 <5 ng/mL 12/05/2024 10:28 AM EDT [facility] Blood Venous blood specimen / Unknown Venipuncture / Unknown 12/01/2024 10:22 AM EDT 12/01/2024 10:25 AM EDT Narrative [facility] - 12/05/2024 10:28 AM EDT Testing performed by LC-MS/MS at the [facility]. This test was developed and its performance characteristics determined by [facility]. This assay has not been cleared by the FDA. The laboratory is regulated under CLIA as qualified to perform high-complexity testing. This test is used for clinical purposes. us Cari Douglas HARDWARE INSTALLATION COORDINATOR LAB BLOOD ORDERABLES Mary Anne cancino Result [facility] [address] [place] [address] * Serum Drug Screen (12/01/2024 10:22 AM EDT) 9 Carboxy THC <5 <5 ng/mL 12/05/2024 4:17 PM EDT [facility] Alprazolam <5 <5 ng/mL 12/05/2024 4:17 PM EDT [facility] Amphetamine <10 <10 ng/mL 12/05/2024 4:17 PM EDT [facility] Benzolyecgonine <20 <20 ng/mL 4:17 PM EDT [facility] Buprenorphine <1.0 <1.0 ng/mL 12/05/2024 4:17 PM EDT [facility] Butalbital <50 <50 ng/mL 12/05/2024 4:17 PM EDT [facility] Clonazepam <5 <5 ng/mL 12/05/2024 4:17 PM EDT [facility] Codeine <5 <5 ng/mL 12/05/2024 4:17 PM EDT [facility] Diazepam <5 <5 ng/mL 12/05/2024 4:17 PM EDT [facility] Fentanyl <1 <1 ng/mL 12/05/2024 4:17 PM EDT [facility] Hydrocodone <2 <2 ng/mL 12/05/2024 4:17 PM EDT [facility] Hydromorphone <5 <5 ng/mL 12/05/2024 4:17 PM EDT [facility] Lorazepam <5 <5 ng/mL 12/05/2024 4:17 PM EDT [facility] MDA <10 <10 ng/mL 12/05/2024 4:17 PM EDT [facility] MDMA <10 <10 ng/mL 12/05/2024 4:17 PM EDT [facility] Meperidine <5 <5 ng/mL 12/05/2024 4:17 PM EDT [facility] Methadone <10 <10 ng/mL 12/05/2024 4:17 PM EDT [facility] Methadone Metabolite <10 <10 ng/mL 11/18 4:17 PM EDT [facility] Methamphetamine <10 <10 ng/mL 4:17 PM EDT [facility] Midazolam <5 <5 ng/mL 12/05/2024 4:17 PM EDT [facility] Morphine <2 <2 ng/mL 12/05/2024 4:17 PM EDT [facility] Norbuprenorphine <5 <5 ng/mL 12/06/19 4:17 PM EDT [facility] Nordiazepam <10 <10 ng/mL 12/05/2024 4:17 PM EDT [facility] Oxazepam <5 <5 ng/mL 12/05/2024 4:17 PM EDT [facility] Oxycodone <2 <2 ng/mL 12/05/2024 4:17 PM EDT [facility] Oxymorphone <2 <2 ng/mL 12/05/2024 4:17 PM EDT [facility] Phenobarbital <50 <50 ng/mL 12/05/2024 4:17 PM EDT [facility] Temazepam <5 <5 ng/mL 12/05/2024 4:17 PM EDT [facility] Tramadol <20 <20 ng/mL 12/05/2024 4:17 PM EDT [facility] Blood Venous blood specimen / Unknown Venipuncture / Unknown 12/01/2024 10:22 AM EDT 12/01/2024 10:25 AM EDT Narrative [facility] - 12/05/2024 4:17 PM EDT Test performed by LC-MS/MS at the [facility]. This test was developed and its performance characteristics determined by [facility]. It has not been cleared or approved by the FDA. The laboratory is regulated under CLIA as qualified to perform high-complexity testing. This test is used for clinical purposes. Carihollie Douglas APRN LAB BLOOD ORDERABLES Mary Anne l Result Performing Organization Address [facility] Co de Phone Number [facility] [address] [place] [address] * Protime-INR (12/01/2024 10:22 AM EDT) Prothrombin Time 14.0 12.0 - 14.3 sec LAB COAGULATION METHOD 12/01/2024 1:25 PM EDT [facility] INR 1.1 0.9 - 1.1 LAB COAGULATION METHOD 12/01/2024 1:25 PM EDT [facility] Blood Venous blood specimen / Unknown Venipuncture / Unknown 12/01/2024 10:22 AM EDT 12/01/2024 10:25 AM EDT Narrative [facility] - 12/01/2024 1:25 PM EDT OPTIMAL INR RANGES FOR PATIENT ON ORAL ANTICOAGULANT THERAPY Prevention of venous thromboembolism INR 2.0 to 3.0 In patients with heart disease: Atrial fibrillation INR 2.0 to 3.0 Valvular heart disease INR 2.0 to 3.0 Tissue heart valves INR 2.0 to 3.0 Mechanical prosthetic valves INR 2.5 to 3.5 Prevention of recurrent OH INR 2.5 to 3.5 Cari Douglas APRN LAB BLOOD ORDERABLES Mary Anne l Result Performing Organization Address City/[facility]/ZIP Co de Phone Number [facility] [address] [place] [address] * Vitamin B1, Whole Blood (12/01/2024 10:22 AM EDT) VITAMIN B1, WHOLE BLOOD 105 70 - 180 nmol/L 12/04/2024 8:36 AM EDT [facility]) Blood Venous blood specimen / Unknown Venipuncture / Unknown 12/01/2024 10:22 AM EDT 12/01/2024 10:25 AM EDT Narrative [facility]) - 12/04/2024 8:36 AM EDT INTERPRETIVE INFORMATION: Vitamin B1, Whole Blood This assay measures the concentration of thiamine diphosphate (TDP), the primary active form of vitamin B1. Approximately 90 percent of vitamin B1 present in whole blood is TDP. Thiamine and thiamine monophosphate, which comprise the remaining 10 percent, are not measured. This test was developed and its performance characteristics determined by [facility]. It has not been cleared or approved by the [place] Food and Drug Administration. This test was performed in a CLIA certified laboratory and is intended for clinical purposes. Performed By: [facility] [address] [place] [id number] Sample Cutter: Maynor Scott MD, PhD CLIA Number: [id number] Cari Douglas HARDWARE INSTALLATION COORDINATOR LAB BLOOD ORDERABLES Mary Anne l Result [facility] ([place] [address] [place] [id number] * CBC and Differential (12/01/2024 10:22 AM EDT) WBC Count 5.75 3.70 - 10.30 10*3/uL LAB HEMATOLOGY METHOD 12/01/2024 12:47 PM EDT [facility] RBC Count 4.69 3.90 - 5.20 10*6/uL LAB HEMATOLOGY METHOD 12/01/2024 12:47 PM EDT [facility] HGB 13.6 11.2 - 15.7 g/dL LAB HEMATOLOGY METHOD 12/01/2024 12:47 PM EDT [facility] HCT 42.5 34.0 - 45.0 % LAB HEMATOLOGY METHOD 12/01/2024 12:47 PM EDT [facility] Platelet Count 309 155 - 369 10*3/uL LAB HEMATOLOGY METHOD 12/01/2024 12:47 PM EDT [facility] MCV 91 79 - 98 fL LAB HEMATOLOGY METHOD 12/01/2024 12:47 PM EDT [facility] MCH 29.0 26.0 - 32.0 pg LAB HEMATOLOGY METHOD 12/01/2024 12:47 PM EDT [facility] MCHC 32.0 30.7 - 35.5 g/dL LAB HEMATOLOGY METHOD 12/01/2024 12:47 PM EDT [facility] RDW 13.1 11.5 - 14.5 % LAB HEMATOLOGY METHOD 12/01/2024 12:47 PM EDT [facility] MPV 10.9 8.8 - 12.5 fL LAB HEMATOLOGY METHOD 12/01/2024 12:47 PM EDT [facility] nRBC 0.0 <=0.0 per 100 WBCs LAB HEMATOLOGY METHOD 12/01/2024 12:47 PM EDT [facility] Differential Type Automated LAB HEMATOLOGY METHOD 12/01/2024 12:47 PM EDT [facility] Neutrophils % 55 % LAB HEMATOLOGY METHOD 12/01/2024 12:47 PM EDT [facility] Lymphocytes % 28 % LAB HEMATOLOGY METHOD 12/01/2024 12:47 PM EDT [facility] Monocytes % 10 % LAB HEMATOLOGY METHOD 12/01/2024 12:47 PM EDT [facility] Eosinophils % 5 % LAB HEMATOLOGY METHOD 12/01/2024 12:47 PM EDT [facility] Basophils % 1 % LAB HEMATOLOGY METHOD 12/01/2024 12:47 PM EDT [facility] Immature Granulocytes % 1 % LAB HEMATOLOGY METHOD 12/01/2024 12:47 PM EDT [facility] Neutrophils Absolute 3.20 1.60 - 6.10 10*3/uL LAB HEMATOLOGY METHOD 12/01/2024 12:47 PM EDT [facility] Lymphocytes Absolute 1.59 1.20 - 3.90 10*3/uL LAB HEMATOLOGY METHOD 12/01/2024 12:47 PM EDT [facility] Monocytes Absolute 0.59 0.30 - 0.90 10*3/uL LAB HEMATOLOGY METHOD 12/01/2024 12:47 PM EDT [facility] Eosinophils Absolute 0.29 0.00 - 0.50 10*3/uL LAB HEMATOLOGY METHOD 12/01/2024 12:47 PM EDT [facility] Basophils Absolute 0.05 0.00 - 0.10 10*3/uL LAB HEMATOLOGY METHOD 12/01/2024 12:47 PM EDT [facility] Immature Granulocytes Absolute 0.03 0.00 - 0.06 10*3/uL LAB HEMATOLOGY METHOD 12/01/2024 12:47 PM EDT [facility] Blood Venous blood specimen / Unknown Venipuncture / Unknown 12/01/2024 10:22 AM EDT 12/01/2024 10:25 AM EDT Narrative [facility] - 12/01/2024 12:47 PM EDT Therapeutic decision making should be based on absolute values, rather than percentages. us Cari Douglas HARDWARE INSTALLATION COORDINATOR LAB BLOOD ORDERABLES Mary Anne barak Result [facility] [address] [place] [address] documented in this encounter Visit Diagnoses Diagnosis Obesity, Class III, BMI 40-49.9 (morbid obesity)- Primary Multiple joint pain Pain in joint, multiple sites Shortness of breath on exertion Shortness of breath Gastroesophageal reflux disease, unspecified whether esophagitis present Fatigue, unspecified type documented in this encounter Additional Health Concerns Active Problems Noted Date Diagnosed Date CPM S22 PP LABOR (OBSTETRICS) 12/06/2022 Assessment Noted Time PHQ-9 Depression Total Score: 0 12/02/19 25 9:12 AM EDT A fall risk assessment has been complete d for the patient 12/01/2024 9:12 AM EDT A Body Mass Index follow-up plan has been documented for the patient 12/07/2024 1:58 PM EDT documented as of this encounter Care Teams Datastage Consultant Relationship Specialty Start Date End Date Susie Shoemaker DO [address] [place] [address] [place] [address] PCP - General 02/07/21 documented as of this encounter
[2024-12-15 13:33] LABS: COC Drug Screen Collection Only
--- OUTSIDE RECORDS SUMMARY | 2024-12-15 13:36 | XMS_ITS | Encounter Summary ---
Author Organization Healthcare Address [address] [place] [address] Care Team Providers Care Employee Development Director Name Role Phone Susie Shoemaker DO Primary Care Provider [phone] Encounter Details Date Type Department Care Team (Late st Contact Info) Description 11/21/2024 Telephone [facility] General & Weight Loss Surgery [address] [place] [phone] Self, MD Blanca Social History Tobacco Use Types Packs/Day Years Used Date Smoking Tobacco: Never Passive Smoke Exposure: Never Smokeless Tobacco: Never Comments:Vape Alcohol Use Standard Drinks/Week Comments Not Currently 0 (1 standard drink = 0.6 oz pur e alcohol) PHQ-2 Answer Date Recorded Patient Health Questionnaire-2 Score 0 08/16/2024 [place] Depression Scale Answer Date Recorded [place] Depression Scale Total 2 04/02/2023 The thought [...] on file documented as of this encounter Plan of Treatment Upcoming Encounters Date Type Department Care Team (Late st Contact Info) Description 02/21/2025 7:50 AM EST Office Visit [facility] Medicine Specialties [address] [place] [address] Nina Hernández L, RESEARCH AND EVALUATION MANAGER [address] [place] [address] 02/22/2025 10:40 AM EST Office Visit [facility] Comprehensive [facility] [address] [place] [address] Monico Staley MD [address] [place] [address] 05/31/2025 9:45 AM EST Procedure Visit Obstetrics & Gynecology [address] [place] [address] Kehinde Bowie MD [address] [place] [address] documented as of this encounter Goals Goal Patient Goal Type Associated Problems Recent Progress Patient-Stated? Author Delayed Delivery Care Plan CPM S22 PP LABOR (OBSTETRICS) No Open Scheduling, Background documented as of this encounter Visit Diagnoses Not on filedocumented in this encounter Additional Health Concerns Active [...] documented as of this encounter Care Teams Employee Development Director Relationship Specialty Start Date End Date Susie Shoemaker DO [address] [place], [place] [address] [place] [address] PCP - General 02/07/21 documented as of this encounter
--- OUTSIDE RECORDS SUMMARY | 2024-12-15 13:36 | XMS_ITS | Encounter Summary ---
Author Organization [facility] Address [address] [place] [address] Care Team Providers Care Aircraft Maintenance Manager Name Role Phone Adalbertojenny Susie Melly URIARTE Primary Care Provider [phone] Encounter Details Date Type Department Care Team (Latest Contact Info) Description 11/08/2024 Travel Social History Tobacco Use Types Packs/Day Years Used Date Smoking Tobacco: Never Passive Smoke Exposure: Never Smokeless Tobacco: Never Comments:Vape Alcohol Use Standard Drinks/Week Comments Not Currently 0 (1 standard drink = 0.6 oz pur e alcohol) PHQ-2 Answer Date Recorded Patient Health Questionnaire-2 Score 0 08/16/2024 [place] Depression Scale Answer Date Recorded [place] Depression Scale Total 2 04/02/2023 The thought [...] on file documented as of this encounter Functional Status documented as of this encounter Plan of Treatment Upcoming Encounters Date Type Department Care Team (Late st Contact Info) Description 02/21/2025 7:50 AM EST Office Visit [facility] Medicine Specialties [address] [place] [address] Nina Hernández, KORY [address] [place] [address] 02/22/2025 10:40 AM EST Office Visit [facility] [address] [place] [address] Monico Staley MD [address] [facility] [address] [place] [address] 05/31/2025 9:45 AM EST Procedure Visit Obstetrics & Gynecology [address] [place] [address] Kehinde Bowie MD [address] [place] [address] documented as of this encounter [...] documented as of this encounter Care Teams Aircraft Maintenance Manager Relationship Specialty Start Date End Date Susie Shoemaker DO [address] [place] [address] PCP - General 02/07/21 documented as of this encounter
--- OUTSIDE RECORDS SUMMARY | 2024-12-15 13:36 | XMS_ITS | Encounter Summary ---
Author Organization Healthcare Address [address] [place] [address] Care Team Providers Care Applications Analyst Name Role Phone AdalbertoSusie alvarado Melly URIARTE Primary Care Provider [phone] Encounter Details Date Type Department Care Team (Latest Contact Info) Description 12/01/2024 Travel Social History Tobacco Use Types Packs/Day Years Used Date Smoking Tobacco: Never Passive Smoke Exposure: Never Smokeless Tobacco: Former Quit: 11/22/2024 Comments:Stopped vaping magnolia jeanine 11/22 Alcohol Use Standard Drinks/Week Comments Not Currently 0 (1 standard drink = 0.6 oz pur e alcohol) PHQ-2 Answer Date Recorded Patient Health Questionnaire-2 Score 0 12/01/2024 [place] Depression Scale Answer Date Recorded [place] Depression Scale Total 2 04/02/2023 The thought [...] documented as of this encounter Functional Status * AUDIT-C Score Answer Date of Assessment Author 0 12/01/2024 9:15 AM Teodora Engel * Question Answer Date of Assessment Author Q1: How often do you have a drink containing alcohol? Never 12/01/2024 9:15 AM AMANDAT Teodora Barrow Q2: How many drinks containing alcohol do you have on a typical day when you are drinking? Patient does not drink 12/01/2024 9:15 AM EDT Teodora Barrow Q3: How often do you have six or more drinks on one occasion? Never 12/01/2024 9:15 AM AMANDAT Teodora Barrow * Over the past 2 weeks, how often have you been bothered by any of the following problems? Question Answer Date of Assessment Author Little interest or pleasure in doing things Not at all 12/01/2024 9:12 AM Teodora Arce Feeling down, depressed, or hopeless Not at all 12/01/2024 9:12 AM AMANDAT Teodora Barrow Patient Health Questionnaire-2 Score 0 12/01/2024 9:12 [...] television Not at all 12/01/2024 9:12 AM AMANDAT Teodora Barrow Moving or speaking so slowly that other people could have noticed? Or the opposite - being so fidgety or restless that you have been moving around a lot more than usual. Not at all 12/01/2024 9:12 AM EDT Teodora Barrow Thoughts that you would be better off or hurting yourself in some way Not at all 12/01/2024 9:12 AM EDT Teodora Barrow Patient Health Questionnaire-9 Score 0 12/01/2024 9:12 AM EDT Teodora Barrow * If you checked off any problems on this questionnaire so far, Question Answer Date of Assessment Author How difficult have these problems made it for you to do your work, take care of things at home, or get along with other people? Not difficult at all 12/01/2024 9:12 AM EDT Teodora Barrow documented as of this encounter Plan of Treatment Upcoming Encounters Date Type Department Care Team (Late st Contact Info) Description 02/21/2025 7:50 AM EST Office Visit [facility] Medicine Specialties [address] [place] [phone] Nina Hernández, KORY [address] [facility] [address] [place] [address] 02/22/2025 10:40 AM EST Office Visit [facility] Comprehensive Vascular Clinic [address] [place] [address] Monico Staley MD [address] [facility] [address] [place] [address] 05/31/2025 9:45 AM EST Procedure Visit Obstetrics & Gynecology [address] [place] [address] Kehinde Bowie MD [address] [place] [address] documented as of this encounter [...] documented as of this encounter Care Teams Applications Analyst Relationship Specialty Start Date End Date Susie Shoemaker DO [address] [place] [address] PCP - General 02/07/21 documented as of this encounter
--- OUTSIDE RECORDS SUMMARY | 2024-12-15 13:37 | XMS_ITS | Encounter Summary ---
Author Organization Healthcare Address [address] [place] [address] Care Team Providers Care Parts Driver Name Role Phone Susie Shoemaker DO Primary Care Provider Reason for Visit * Reason Onset Date Comments depression 04/02/2021 see my chart [place] Encounter Details Date Type Department Care Team (Late st Contact Info) Description 04/02/2021 Nurse Triage Obstetrics & Gynecology [address] [place] [address] Delmi Vazquez, MAINTAINER OPERATOR, CN [address] [place] [address] Social History Tobacco Use Types Packs/Day Years Used Date Smoking Tobacco: Never Smokeless Tobacco: Never Alcohol Use Standard Drinks/Week Comments Not Currently 0 (1 standard drink = 0.6 oz pur e alcohol) [place] Depression Scale Answer Date Recorded [place] Depression Scale Total 1 03/07/2021 The thought of harming myself has occurred to me . Never 03/07/2021 Comments No Sex and Gender Information Value Date Recorded Sex Assigned at Not on file Legal Sex Female 8:50 PM EDT Gender Identity Not on file Sexual Orientation Not on file COVID-19 Exposure Response Date Recorded In the last month, have you been in contact with someone who was confirmed or suspected to have Coronavirus / COVID-19? No / Unsure 03/25/2021 11:55 AM EST documented as of this encounter Plan of Treatment Upcoming Encounters Date Type Department Care Team (Late st Contact Info) Description 02/21/2025 7:50 AM EST Office Visit [facility] Medicine Specialties [address] [place] [address] Nina Hernández APRN [address] [place] [address] 02/22/2025 10:40 AM EST Office Visit [facility] [address] [place] [address] Monico Staley MD [address] [place] [address] 05/31/2025 9:45 AM EST Procedure Visit Obstetrics & Gynecology [address] [place] [address] Kehinde Bowie MD [address] [place] [address] documented as of this encounter Visit Diagnoses Not on filedocumented in this encounter Additional Health Concerns Assessment Noted Time A fall risk assessment has been complete d for the patient 01/28/2021 7:57 AM EDT documented as of this encounter Care Teams Parts Driver Relationship Specialty Start Date End Date Susie Shoemaker DO [address] [place], [place] [address] [place] [address] PCP - General 02/07/21 documented as of this encounter
--- OUTSIDE RECORDS SUMMARY | 2024-12-15 13:37 | XMS_ITS | Clinical Summary ---
Author Organization [facility] Address [address], [address] [place] [address] Care Team Providers Care Bridge Maintainer Name Role Phone System, Referring Not In Primary Care Provider U navailable Allergies No known active allergies Medications No known medications Social History Tobacco Use Types Packs/Day Years Used Date Smoking Tobacco: Never Comments Unknown Sex and Gender Information Value Date Recorded Sex Assigned at Not on file Legal Sex Female 7:07 PM EDT Gender Identity Not on file Sexual Orientation Not on file Last Filed Vital Signs Vital Sign Reading Time Taken Comments Blood Pressure 139/82 07/18/2015 7:26 PM EDT Pulse 83 07/18/2015 7:26 PM EDT Temperature - - Respiratory Rate 16 07/18/2015 7:26 PM EDT Oxygen Saturation 99% 07/18/2015 7:26 PM EDT Inhaled Oxygen Concentration - - Weight - - Height - - Body Mass Index - - Plan of Treatment Not on file Care Teams Bridge Maintainer Relationship Specialty Start Date End Date System, Referring Not In PCP - General 07/19/15
--- OUTSIDE RECORDS SUMMARY | 2024-12-15 13:37 | XMS_ITS | Clinical Summary ---
Author Organization [facility] Address [address] [place] [id number] Care Team Providers Care Shop Mechanic Name Role Phone Provider, No Known Primary Care Provider Unavail able Social History Tobacco Use Types Packs/Day Years Used Date Smoking Tobacco: Never Assessed Abuse Screen Answer Date Recorded Unsafe at Home or Work/School Not on file Feels Threatened by Someone? Not on file 12/2022 Does Anyone Keep You from Co ntacting Others or Doint Things Outside the Home? Not on file 01/26/2023 Physical Sign of Abuse Present Not on file 1 Housing Stability Answer Date Recorded Current Living Arrangements Not on file 12/2022 Potentially Unsafe Housing Conditions Not on ryan e 01/26/2023 Family and Community Support Answer Geoffrey e Recorded Help with Day-to-Day Activities Not on file 01/26/2023 Lonely or Isolated Not on file 01/26/2023 Employment Answer Date Recorded Do you want help finding or keeping work or a mary b? Not on file 01/26/2023 Disabilities Answer Date Recorded Concentrating, Remembering, or Making Decisions Difficulty Not on file 01/26/2023 Doing Errands Independently Difficulty Not on fi le 01/26/2023 Education Answer Date Recorded Help with school or training? Not on file Preferred Language Not on file 01/26/2023 Comments Unknown Sex and Gender Information Value Date Recorded Sex Assigned at Not on file Legal Sex Female 11:44 AM EDT Gender Identity Not on file Sexual Orientation Not on file Plan of Treatment Health Maintenance Due Date Last Done Comments ANNUAL PHYSICAL 1998 Annual Gynecologic Pelvic an d Breast Exam 1998 HEPATITIS C SCREENING 1998 HPV VACCINES (1 - 3-dose series) 2013 TDAP/TD VACCINES (1 - Tdap) 2017 COVID-19 Vaccine (1 - 2024-2 5 season) 2023 INFLUENZA VACCINE 01/18/2025 Pneumococcal Vaccine 0-49 Aged Out No longer eligible based on patient's age to complete this topic Care Teams Shop Mechanic Relationship Specialty Start Date End Date Provider, No Known [facility] [place] [address] PCP - General 06/21/15
--- OUTSIDE RECORDS SUMMARY | 2024-12-15 13:37 | XMS_ITS | Clinical Summary ---
Author Organization [facility] Address [address] [place] [address] Care Team Providers Care Manpower Development Specialist Manager Name Role Phone Susie Shoemaker DO Primary Care Provider [phone] Allergies No known active allergies Medications levonorgestrel (Mirena) 20 MCG/DAY IUD 1 each by Intrauterine route 1 (one) time. Active escitalopram (Lexapro) 10 MG tablet TAKE 1 TABLET BY MOUTH EVERY DAY 90 tablet 1 01/11/20 24 Active hydroxychloroquine (Plaquenil) 200 MG tablet Take 1 tablet (200 mg) by mouth 2 (two) times a day. 60 tablet 5 02/22/20 24 Active Nurtec 75 MG orally disintegrating tablet 1 TABLET BY MOUTH NEEDED (QTY 8 [EIGHT]) 07/20/19 25 Active SUMAtriptan (Imitrex) 50 MG tablet TAKE 1 TABLET BY MOUTH AT HEADACHE ONSET. MAY REPEAT IN 2 HRS. MAX 4 TABS PER DAY 07/06/19 25 Active Topiramate ER 25 MG capsule sustained-release 24 hr Take 1 tablet by mouth daily. 07/06/19 25 Active norgestimate-ethin yl estradiol (Sprintec 28) 0.25-35 MG-MCG tablet Take 1 tablet by mouth daily. 28 tablet 12 07/27/19 25 026 Active Additional Information Patient not taking.Reported on 11/08/2024 cetirizine (ZyrTEC) 10 MG tablet Take 1 tablet by mouth daily. 03/25/20 24 Active fluticasone (Flonase) 50 MCG/ACT nasal spray Administer 1 spray into each nostril daily as needed. 03/25/20 24 Active predniSONE (Deltasone) 5 MG tablet Take 1-3 tabs as needed for flares. 30 tablet 08/17/19 25 Active Additional Information Patient not taking.Reported on 11/08/2024 traMADol (Ultram) 50 MG tablet Take 1 tablet by mouth 3 times a day. 09/02/19 25 Active benzonatate (Tessalon) 200 MG capsule PLEASE SEE ATTACHED FOR DETAILED DIRECTIONS 09/25/19 Active baclofen (Lioresal) 10 MG tablet Take 1 tablet by mouth 3 times a day. 09/02/19 25 Active Semaglutide-Weight Management (Wegovy) 0.25 MG/0.5ML solution auto-injector Inject 0.25 mg under the skin 1 time per week. 2 mL 12/02/19 Active Mounjaro 2.5 MG/0.5ML solution auto-injector solution pen-injector Inject 0.5 mL under the skin 1 time per week. 2 mL 12/06/19 25 Active Active Problems Problem Noted Date Diagnosed Date Multiple joint pain 12/01/2024 Gastroesophageal reflux disease 12/01/2024 Fatigue 12/01/2024 Left leg swelling 11/10/2024 Counseling for control regarding intrauterine device (IUD) 03/18/2023 False labor 02/11/2023 Obesity, Class III, BMI 40-49.9 (morbid obesity) 01/21/2023 Edema during , antepartum 01/14/2023 BMI 39.0-39.9,adult 11/05/2022 Dizziness 10/08/2022 Syncope and collapse 08/13/2022 Anxiety 05/12/2022 Insomnia 05/12/2022 Vaginal discharge 05/08/2021 Encounter for gynecological examination with abnormal finding 05/08/2021 Vaginal dryness 05/08/2021 Nausea and vomiting during 01/08/2021 Heart palpitations 12/25/2020 Shortness of breath on exertion 12/25/2020 Obesity in 12/11/2020 Heartburn during , antepartum Restless legs 11/27/2020 Group B streptococcal infection in Supervision of other normal , antepartu 10/02/2020 Personal history of COVID-19 10/02/2020 Overview (10/02/2020): Enc Baby ASA daily Resolved Problems Problem Noted Date Diagnosed Date Resolved Date Supervision of high risk pre gnancy in third trimester 12/25/2020 02/19/2021 Acute vaginitis 11/21/2020 11/27/2020 COVID-19 10/02/2020 10/02/2020 Overview (10/02/2020): Enc to take Baby ASA daily Encounters Date Type Department Care Team Description 12/05/2024 Orders Only [facility] [address] [place] [address] Cari Douglas APRN 12/01/2024 9:30 AM EDT Office Visit [facility] [address] [place] [address] Cari Douglas, BIOPROCESSING MANUFACTURING TECHNICIAN Obesity, Class III, BMI 40-49.9 (morbid obesity) (Primary Dx); Multiple joint pain; Shortness of breath on exertion; Gastroesophageal reflux disease, unspecified whether esophagitis present; Fatigue, unspecified type 12/01/2024 Travel 11/21/2024 Telephone [facility] [address] [place] [address] Blanca Steel MD 11/08/2024 1:00 PM EDT Office Visit [facility] [address] [place] [address] Monico Staley MD Morbid obesity with BMI of 40.0-44.9, adult (CMS/HCC) (Primary Dx); Swelling of lower extremity; Left leg swelling 11/08/2024 Travel 09/26/2024 Telephone [facility] [address] [place] [id number] Monico Staley MD HCN Clinical Concern/Question 09/21/2024 Orders Only [facility] [address] [place] [address] Nina Hernández APRN 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) 09/16/2024 8:48 AM EDT - 09/16/2024 11:59 PM EDT Hospital Encounter [facility] [address] [place] [address] Positive ANNETTA (antinuclear antibody); HLA-B*[id number] positive Discharge Disposition: Home or Self Care 09/16/2024 Travel from Last 3 Months Immunizations Immunization Administration Dates Next Due Influenza, injectable, MDCK, preservative free, quadrivalent 05/20/2023 Influenza, seasonal, injectable 05/20/2023 Influenza, seasonal, injecta ble, preservative free 04/26/2024 Pfizer Covid-19 Vaccine 12y+ , Arnaldo Protein, PF, Randal-Sucrose 05/20/2023 Tdap 12/03/2022,11/27/2020,11/03/2018 Family History Medical History Relation Name Comments Hypertension, benign Brother Graves' disease Father Hyperlipidemia Father Hypertension, benign Father Hypertension, benign Father's Sister Migraines Father's Sister Thyroid disease Father's Sister Hypertension, benign Maternal Grandfather Kidney disease Maternal Grandmother Melanoma Maternal Grandmother Mental illness Maternal Grandmother Autoimmune disease Mother No Known Problems Mother's Sister Heart attack Paternal Grandfather Heart failure Paternal Grandmother Hyperlipidemia Paternal Grandmother Hypertension, benign Paternal Grandmother Kidney disease Paternal Grandmother No Known Problems Sister No Known Problems Son Relation Name Status Comments Brother Alive Father Alive Father's Sister Alive Maternal Grandfather Alive Maternal Grandmother Alive Mother Alive Mother's Sister Alive Paternal Grandfather Paternal Grandmother Alive Sister Alive Son Alive Social History Tobacco Use Types Packs/Day Years Used Date Smoking Tobacco: Never Passive Smoke Exposure: Never Smokeless Tobacco: Former Quit: 11/22/2024 Tobacco Cessation:Counseling Given: Not Answered Comments:Stopped vaping nicotine 11/22 Alcohol Use Standard Drinks/Week Comments Not Currently 0 (1 standard drink = 0.6 oz pur e alcohol) PHQ-2 Answer Date Recorded Patient Health Questionnaire-2 Score 0 12/01/2024 [facility] Depression Scale Answer Date Recorded [facility] Depression Scale Total 2 04/02/2023 The thought [...] Pulse 50 12/01/2024 9:15 AM EDT Temperature 36.9 C (98.4 F) 11/08/2024 12:42 PM EDT Respiratory Rate 16 12/01/2024 9:15 AM EDT Oxygen Saturation 97% 12/01/2024 9:15 AM EDT Inhaled Oxygen Concentration - - Weight 102 kg (225 lb) 12/01/2024 9:15 AM EDT Height 158.8 cm (5' 2.5 ) 12/01/2024 9:15 AM EDT Body Mass Index 40.5 12/01/2024 9:15 AM EDT Plan of Treatment Upcoming Encounters Date Type Department Care Team (Late st Contact Info) Description 02/21/2025 7:50 AM EST Office Visit [facility] Medicine Specialties [address] [place] [address] Nina Hernández APRN [address] [place] [address] 02/22/2025 10:40 AM EST Office Visit [facility] [address] [place] [address] Monico Staley MD [address] [place] [address] 05/31/2025 9:45 AM EST Procedure Visit Obstetrics & Gynecology [address] [place] [address] Kehinde Bowie MD [address] [place] [address] Health Maintenance Due Date Last Done Comments [facility]-/Child/Adol SDOH Screenings 1998 [facility]-Varicella Vaccines (1 of 2 - 13+ 2-dose series) 2011 HPV Vaccines (1 - 3-dose series) 2013 [facility]- SDOH Screenings 01/16/2016 [facility]-Adult SDOH Screenings 01/16/2016 [facility]-Hepatitis B Vaccines (1 of 3 - 19+ 3-dose series) 2017 [facility]-Zoster Vaccines (1 of 2) 2017 OGT-PCKNQ-35 Vaccine ( - 2023- season) 2023 05/20/2023, 05/22/2021, 05/01/2021 [facility]-Influenza Vaccine (#1) 12/19/202404/26, 05/20/2023, 05/20/2023 [facility]-Depression Screening 12/01/2025 025, 12/01/2024, 04/02/2023 [facility]-Pap Smear 05/26/2027 05/26/2024, 05/08/2021 [facility]-DTaP,Tdap,and Td Vaccines (4 - Td or Tdap) 12/03/2032 12/03/2022, 11/27/2020, 11/03/2018 [facility]-HIV Screening Completed 07/16/2022, , 07/11/2020 [facility]-Hepatitis C Screening Completed 2022, 08/02/2020, 07/11/2020 [facility]-Obesity Intervention Completed 025, 11/08/2024, 08/16/2024, Additional history exists [facility]-HIB Vaccines Aged Out No longer e ligible based on patient's age to complete this topic [facility]-Hepatitis A Vaccines Aged Out No longer eligible based on patient's age to complete this topic [facility]-IPV Vaccines Aged Out No longer e ligible based on patient's age to complete this topic [facility]-Pneumococcal Vaccine: Pediatrics (0 to 5 Years) and At-Risk Patients (6 to 49 Years) Aged Out No longer eligible based on patient's age to complete this topic [facility]-Rotavirus Vaccines Aged Out No lo nger eligible based on patient's age to complete this topic Goals Goal Patient Goal Type Associated Problems Recent Progress Patient-Stated? Author Delayed Delivery Care Plan CPM S22 PP LABOR (OBSTETRICS) No Open Scheduling, Background Procedures Procedure Name Priority Date/Time Associated Diagnosis Comments CBC WITH AUTO DIFFERENTIAL Routine 12/01/2024 10:22 AM EDT Obesity, Class III, BMI 40-49.9 (morbid obesity) Multiple joint pain Shortness of breath on exertion Gastroesophageal reflux disease, unspecified whether esophagitis present Fatigue, unspecified type VITAMIN B1 (THIAMINE), WHOLE BLOOD (SO) Routine 12/01/2024 10:22 AM EDT Obesity, Class III, BMI 40-49.9 (morbid obesity) Multiple joint pain Shortness of breath on exertion Gastroesophageal reflux disease, unspecified whether esophagitis present Fatigue, unspecified type PROTHROMBIN TIME(PT) / INR Routine 12/01/2024 10:22 AM EDT Obesity, Class III, BMI 40-49.9 (morbid obesity) Multiple joint pain Shortness of breath on exertion Gastroesophageal reflux disease, unspecified whether esophagitis present Fatigue, unspecified type SERUM DRUG SCREEN Routine 12/01/2024 10: 22 AM EDT Obesity, Class III, BMI 40-49.9 (morbid obesity) Multiple joint pain Shortness of breath on exertion Gastroesophageal reflux disease, unspecified whether esophagitis present Fatigue, unspecified type NICOTINE AND COTININE METABOLITE, SERUM, QUANTITATIVE Routine 12/01/2024 10:22 AM EDT Obesity, Class III, BMI 40-49.9 (morbid obesity) Multiple joint pain Shortness of breath on exertion Gastroesophageal reflux disease, unspecified whether esophagitis present Fatigue, unspecified type COMPREHENSIVE METABOLIC PANEL, PLASMA Routine 12/01/2024 10:22 AM EDT Obesity, Class III, BMI 40-49.9 (morbid obesity) Multiple joint pain Shortness of breath on exertion Gastroesophageal reflux disease, unspecified whether esophagitis present Fatigue, unspecified type FREE T4, PLASMA Routine 12/01/2024 10:22 AM EDT Obesity, Class III, BMI 40-49.9 (morbid obesity) Multiple joint pain Shortness of breath on exertion Gastroesophageal reflux disease, unspecified whether esophagitis present Fatigue, unspecified type HEMOGLOBIN A1C Routine 12/01/2024 10:22 AM EDT Obesity, Class III, BMI 40-49.9 (morbid obesity) Multiple joint pain Shortness of breath on exertion Gastroesophageal reflux disease, unspecified whether esophagitis present Fatigue, unspecified type IRON, PLASMA Routine 12/01/2024 10:22 AM EDT Obesity, Class III, BMI 40-49.9 (morbid obesity) Multiple joint pain Shortness of breath on exertion Gastroesophageal reflux disease, unspecified whether esophagitis present Fatigue, unspecified type LIPID PROFILE, PLASMA Routine 12/01/2024 10:22 AM EDT Obesity, Class III, BMI 40-49.9 (morbid obesity) Multiple joint pain Shortness of breath on exertion Gastroesophageal reflux disease, unspecified whether esophagitis present Fatigue, unspecified type TSH Routine 12/01/2024 10:22 AM EDT Obesity, Class III, BMI 40-49.9 (morbid obesity) Multiple joint pain Shortness of breath on exertion Gastroesophageal reflux disease, unspecified whether esophagitis present Fatigue, unspecified type VITAMIN B12, SERUM Routine 12/01/2024 10 :22 AM EDT Obesity, Class III, BMI 40-49.9 (morbid obesity) Multiple joint pain Shortness of breath on exertion Gastroesophageal reflux disease, unspecified whether esophagitis present Fatigue, unspecified type VITAMIN D 25 HYDROXY Routine 12/01/2024 10:22 AM EDT Obesity, Class III, BMI 40-49.9 (morbid obesity) Multiple joint pain Shortness of breath on exertion Gastroesophageal reflux disease, unspecified whether esophagitis present Fatigue, unspecified type VITAMIN E, SERUM OR PLASMA (SO) Routine 12/01/2024 10:22 AM EDT Obesity, Class III, BMI 40-49.9 (morbid obesity) Multiple joint pain Shortness of breath on exertion Gastroesophageal reflux disease, unspecified whether esophagitis present Fatigue, unspecified type VITAMIN K1, SERUM (SO) Routine 10:22 AM EDT Obesity, Class III, BMI 40-49.9 (morbid obesity) Multiple joint pain Shortness of breath on exertion Gastroesophageal reflux disease, unspecified whether esophagitis present Fatigue, unspecified type VITAMIN A (RETINOL), SERUM OR PLASMA (SO) Routine 12/01/2024 10:22 AM EDT Obesity, Class III, BMI 40-49.9 (morbid obesity) Multiple joint pain Shortness of breath on exertion Gastroesophageal reflux disease, unspecified whether esophagitis present Fatigue, unspecified type FOLATE, SERUM Routine 12/01/2024 10:22 AM EDT Obesity, Class III, BMI 40-49.9 (morbid obesity) Multiple joint pain Shortness of breath on exertion Gastroesophageal reflux disease, unspecified whether esophagitis present Fatigue, unspecified type MR PELVIS WO IV CONTRAST Routine 09/16/2024 9:20 AM EDT Positive ANNETTA (antinuclear antibody) HLA-B*5701 positive REFERRED THINPREP PAP AND HPV (SO) Routine 05/26/2024 1:40 PM EST Encounter for annual routine gynecological examination HEPATITIS C ANTIBODY W/REFLEX TO HCV QUANT PCR Routine 07/16/2022 4:03 PM EDT Missed periods HIV 1/2 ANTIBODY/ANTIGEN SCREEN WITH REFLEX TO HIV I/II DIFFERENTIATION Routine 07/16/2022 4:03 PM EDT Missed periods from Last 3 Months or Most Recently Relevant to Health Maintenance Results * Serum Drug Screen (12/01/2024 10:22 AM EDT) 9 Carboxy THC <5 <5 ng/mL 12/05/2024 4:17 PM EDT [facility] Alprazolam <5 <5 ng/mL 12/05/2024 4:17 PM EDT [facility] Amphetamine <10 <10 ng/mL 12/05/2024 4:17 PM EDT [facility] Benzolyecgonine <20 <20 ng/mL 4:17 PM EDT [facility] Buprenorphine <1.0 <1.0 ng/mL 12/05/2024 4:17 PM EDT [facility] Butalbital <50 <50 ng/mL 12/05/2024 4:17 PM EDT [facility] Clonazepam <5 <5 ng/mL 12/05/2024 4:17 PM EDT [facility] Codeine <5 <5 ng/mL 12/05/2024 4:17 PM EDT [facility] Diazepam <5 <5 ng/mL 12/05/2024 4:17 PM EDT [facility] Fentanyl <1 <1 ng/mL 12/05/2024 4:17 PM EDT [facility] Hydrocodone <2 <2 ng/mL 12/05/2024 4:17 PM EDT [facility] Hydromorphone <5 <5 ng/mL 12/05/2024 4:17 PM EDT [facility] Lorazepam <5 <5 ng/mL 12/05/2024 4:17 PM EDT [facility] MDA <10 <10 ng/mL 12/05/2024 4:17 PM EDT [facility] MDMA <10 <10 ng/mL 12/05/2024 4:17 PM EDT [facility] Meperidine <5 <5 ng/mL 12/05/2024 4:17 PM EDT [facility] Methadone <10 <10 ng/mL 12/05/2024 4:17 PM EDT [facility] Methadone Metabolite <10 <10 ng/mL 11/18 4:17 PM EDT [facility] Methamphetamine <10 <10 ng/mL 4:17 PM EDT [facility] Midazolam <5 <5 ng/mL 12/05/2024 4:17 PM EDT [facility] Morphine <2 <2 ng/mL 12/05/2024 4:17 PM EDT [facility] Norbuprenorphine <5 <5 ng/mL 12/06/19 4:17 PM EDT [facility] Nordiazepam <10 <10 ng/mL 12/05/2024 4:17 PM EDT [facility] Oxazepam <5 <5 ng/mL 12/05/2024 4:17 PM EDT [facility] Oxycodone <2 <2 ng/mL 12/05/2024 4:17 PM EDT [facility] Oxymorphone <2 <2 ng/mL 12/05/2024 4:17 PM EDT [facility] Phenobarbital <50 <50 ng/mL 12/05/2024 4:17 PM EDT [facility] Temazepam <5 <5 ng/mL 12/05/2024 4:17 PM EDT [facility] Tramadol <20 <20 ng/mL 12/05/2024 4:17 PM EDT [facility] Blood Venous blood specimen / Unknown Venipuncture / Unknown 12/01/2024 10:22 AM EDT 12/01/2024 10:25 AM EDT Narrative [facility] - 12/05/2024 4:17 PM EDT Test performed by LC-MS/MS at the [facility]. This test was developed and its performance characteristics determined by [facility]. It has not been cleared or approved by the FDA. The laboratory is regulated under CLIA as qualified to perform high-complexity testing. This test is used for clinical purposes. us Cari Douglas BIOPROCESSING MANUFACTURING TECHNICIAN LAB BLOOD ORDERABLES Mary Anne l Result [facility] [address] [place] [address] * Vitamin A (Retinol), Serum or Plasma (12/01/2024 10:22 AM EDT) Vitamin A (Retinyl Palmitate) <0.02 0.00 - 0.10 mg/L 12/04/2024 11:57 AM EDT [facility] ([facility]) VITAMIN A,SER/VENUS-INTE RPRETATION Normal 12/04/2024 11:57 AM EDT [facility] ([facility]) Vitamin A (Retinol) 0.48 0.30 - 1.20 mg/L 12/04/2024 11:57 AM EDT [facility] ([facility]) Fasting greater than or equal to 12 hours? 12/04/2024 11:57 AM EDT [facility] ([facility]) Blood Venous blood specimen / Unknown Venipuncture / Unknown 12/01/2024 10:22 AM EDT 12/01/2024 10:25 AM EDT Narrative [facility] ([facility]) - 12/04/2024 11:57 AM EDT This test was developed and its performance characteristics determined by [facility]. It has not been cleared or approved by the [place] Food and Drug Administration. This test was performed in a CLIA certified laboratory and is intended for clinical purposes. Performed By: [facility] [address] [place], [place] [id number] Spray Stainer: Maynor Scott MD, PhD CLIA Number: [id number] Cari Douglas BIOPROCESSING MANUFACTURING TECHNICIAN LAB BLOOD ORDERABLES Mary Anne l Result [facility] ([facility]) [address] [place] [address] * Nicotine and Metabolites, Serum or Plasma, Quantitative (12/01/2024 10:22 AM EDT) NICOTINE <5 <5 ng/mL 12/05/2024 10:28 AM EDT [facility] Cotinine <5 <5 ng/mL 12/05/2024 10:28 AM EDT [facility] Blood Venous blood specimen / Unknown Venipuncture / Unknown 12/01/2024 10:22 AM EDT 12/01/2024 10:25 AM EDT Narrative [facility] - 12/05/2024 10:28 AM EDT Testing performed by LC-MS/MS at the [facility]. This test was developed and its performance characteristics determined by [facility]. This assay has not been cleared by the FDA. The laboratory is regulated under CLIA as qualified to perform high-complexity testing. This test is used for clinical purposes. Cari Douglas APRN LAB BLOOD ORDERABLES Mary Anne l Result [facility] [address] [place] [address] * Vitamin K (12/01/2024 10:22 AM EDT) VITAMIN K RESULT 0.44 0.22 - 4.88 nmol/L 12/05/2024 3:17 PM EDT [employer] ([facility]) Serum Venous blood specimen / Unknown 12/01/2024 10:22 AM EDT 12/01/2024 10:25 AM EDT Narrative [facility] ([facility]) - 12/05/2024 3:17 PM EDT INTERPRETIVE INFORMATION: Vitamin K1, Serum Vitamin K concentration is reported as nanomoles per liter (nmol/L). To convert concentration to nanograms per milliliter (ng/mL), multiply the result by 0.45. This test was developed and its performance characteristics determined by [facility]. It has not been cleared or approved by the [place] Food and Drug Administration. This test was performed in a CLIA certified laboratory and is intended for clinical purposes. Performed By: [facility] [address] [place] [id number] Spr[employer] St[employer]: Maynor Scott MD, PhD CLIA Number: [id number] Cari Douglas APRN LAB BLOOD ORDERABLES Mary Anne l Result [facility] ([facility]) [address] [place] [address] * Vitamin D 25 Hydroxy (12/01/2024 10:22 AM EDT) Vitamin D 25 Hydroxy 29.7 20.0 - 80.0 ng/mL 12/01/2024 1:58 PM EDT [facility] Blood Venous blood specimen / Unknown Venipuncture / Unknown 12/01/2024 10:22 AM EDT 12/01/2024 10:25 AM EDT Narrative [facility] - 12/01/2024 1:58 PM EDT Testing performed on [employer], standardized against NIST SRM 2972. When testing [...] ng/mL Possible toxicity: >100 ng/mL Cari Douglas BIOPROCESSING MANUFACTURING TECHNICIAN LAB BLOOD ORDERABLES Mary Anne cancino Result [facility] [address] [place] [address] * Protime-INR (12/01/2024 10:22 AM EDT) Prothrombin Time 14.0 12.0 - 14.3 sec LAB COAGULATION METHOD 12/01/2024 1:25 PM EDT [facility] INR 1.1 0.9 - 1.1 LAB COAGULATION METHOD 12/01/2024 1:25 PM EDT [facility] Blood Venous blood specimen / Unknown Venipuncture / Unknown 12/01/2024 10:22 AM EDT 12/01/2024 10:25 AM EDT Narrative [facility] - 12/01/2024 1:25 PM EDT OPTIMAL INR RANGES FOR PATIENT ON ORAL ANTICOAGULANT THERAPY Prevention of venous thromboembolism INR 2.0 to 3.0 In patients with heart disease: Atrial fibrillation INR 2.0 to 3.0 Valvular heart disease INR 2.0 to 3.0 Tissue heart valves INR 2.0 to 3.0 Mechanical prosthetic valves INR 2.5 to 3.5 Prevention of recurrent CO INR 2.5 to 3.5 us Cari Douglas BIOPROCESSING MANUFACTURING TECHNICIAN LAB BLOOD ORDERABLES Mary Anne cancino Result [facility] [address] [place] [address] * CBC and Differential (12/01/2024 10:22 AM EDT) WBC Count 5.75 3.70 - 10.30 10*3/uL LAB HEMATOLOGY METHOD 12/01/2024 12:47 PM EDT [facility] RBC Count 4.69 3.90 - 5.20 10*6/uL LAB HEMATOLOGY METHOD 12/01/2024 12:47 PM EDT [facility] HGB 13.6 11.2 - 15.7 g/dL LAB HEMATOLOGY METHOD 12/01/2024 12:47 PM EDT [facility] HCT 42.5 34.0 - 45.0 % LAB HEMATOLOGY METHOD 12/01/2024 12:47 PM EDT [facility] Platelet Count 309 155 - 369 10*3/uL LAB HEMATOLOGY METHOD 12/01/2024 12:47 PM EDT [facility] MCV 91 79 - 98 fL LAB HEMATOLOGY METHOD 12/01/2024 12:47 PM EDT [facility] MCH 29.0 26.0 - 32.0 pg LAB HEMATOLOGY METHOD 12/01/2024 12:47 PM EDT [facility] MCHC 32.0 30.7 - 35.5 g/dL LAB HEMATOLOGY METHOD 12/01/2024 12:47 PM EDT [facility] RDW 13.1 11.5 - 14.5 % LAB HEMATOLOGY METHOD 12/01/2024 12:47 PM EDT [facility] MPV 10.9 8.8 - 12.5 fL LAB HEMATOLOGY METHOD 12/01/2024 12:47 PM EDT [facility] nRBC 0.0 <=0.0 per 100 WBCs LAB HEMATOLOGY METHOD 12/01/2024 12:47 PM EDT [facility] Differential Type Automated LAB HEMATOLOGY METHOD 12/01/2024 12:47 PM EDT [facility] Neutrophils % 55 % LAB HEMATOLOGY METHOD 12/01/2024 12:47 PM EDT [facility] Lymphocytes % 28 % LAB HEMATOLOGY METHOD 12/01/2024 12:47 PM EDT [facility] Monocytes % 10 % LAB HEMATOLOGY METHOD 12/01/2024 12:47 PM EDT [facility] Eosinophils % 5 % LAB HEMATOLOGY METHOD 12/01/2024 12:47 PM EDT [facility] Basophils % 1 % LAB HEMATOLOGY METHOD 12/01/2024 12:47 PM EDT [facility] Immature Granulocytes % 1 % LAB HEMATOLOGY METHOD 12/01/2024 12:47 PM EDT [facility] Neutrophils Absolute 3.20 1.60 - 6.10 10*3/uL LAB HEMATOLOGY METHOD 12/01/2024 12:47 PM EDT [facility] Lymphocytes Absolute 1.59 1.20 - 3.90 10*3/uL LAB HEMATOLOGY METHOD 12/01/2024 12:47 PM EDT [facility] Monocytes Absolute 0.59 0.30 - 0.90 10*3/uL LAB HEMATOLOGY METHOD 12/01/2024 12:47 PM EDT [facility] Eosinophils Absolute 0.29 0.00 - 0.50 10*3/uL LAB HEMATOLOGY METHOD 12/01/2024 12:47 PM EDT [facility] Basophils Absolute 0.05 0.00 - 0.10 10*3/uL LAB HEMATOLOGY METHOD 12/01/2024 12:47 PM EDT [facility] Immature Granulocytes Absolute 0.03 0.00 - 0.06 10*3/uL LAB HEMATOLOGY METHOD 12/01/2024 12:47 PM EDT [facility] Blood Venous blood specimen / Unknown Venipuncture / Unknown 12/01/2024 10:22 AM EDT 12/01/2024 10:25 AM EDT [facility] - 12/01/2024 12:47 PM EDT Therapeutic decision making should be based on absolute values, rather than percentages. Cari Douglas BIOPROCESSING MANUFACTURING TECHNICIAN LAB BLOOD ORDERABLES Mary Anne l Result [facility] [address] [place] [address] * Vitamin E, Serum or Plasma (12/01/2024 10:22 AM EDT) Vitamin E (Alpha-Tocophe rol) 7.9 5.5 - 18.0 mg/L 12/04/2024 11:57 AM EDT [facility] ([facility]) Vitamin E (Gamma-Tocophe rol) 0.9 0.0 - 6.0 mg/L 12/04/2024 11:57 AM EDT [facility] ([facility]) Fasting greater than or equal to 12 hours? 12/04/2024 11:57 AM EDT [facility] ([facility]) Blood Venous blood specimen / Unknown Venipuncture / Unknown 12/01/2024 10:22 AM EDT 12/01/2024 10:25 AM EDT Narrative [facility] ([facility]) - 12/04/2024 11:57 AM EDT This test was developed and its performance characteristics determined by [facility]. It has not been cleared or approved by the US Food and Drug Administration. This test was performed in a CLIA certified laboratory and is intended for clinical purposes. Performed By: [facility] [address] [place] [address] Spray Stainer: Maynor Scott MD, PhD CLIA Number: [id number] Cari Douglas BIOPROCESSING MANUFACTURING TECHNICIAN LAB BLOOD ORDERABLES Mary Anne l Result Performing Organization Address City/[facility]/ZIP Co de Phone Number [facility] ([facility]) [address] [place] [address] * Thyroid Stimulating Hormone, Plasma (12/01/2024 10:22 AM EDT) Thyroid Stimulating Hormone, Plasma 3.07 0.40 - 4.20 uIU/mL 12/01/2024 1:[address] [facility] Blood Venous blood specimen / Unknown Venipuncture / Unknown 12/01/2024 10:22 AM EDT 12/01/2024 10:25 AM EDT Narrative [facility] - 12/01/2024 1:34 PM EDT Trimester Specific Ranges TSH ( IU/mL) 1st Trimester 0.1 - 3.0 2nd Trimester 0.19 - 4.06 3rd Trimester 0.3 - 3.7 Cari Douglas BIOPROCESSING MANUFACTURING TECHNICIAN LAB BLOOD ORDERABLES Mary Anne l Result Performing Organization Address [facility] [place] [address] * Free T4, Plasma (12/01/2024 10:22 AM EDT) Free T4, Plasma 1.2 0.8 - 1.7 ng/dL 12/01/2024 1:[address] [facility] Blood Venous blood specimen / Unknown Venipuncture / Unknown 12/01/2024 10:22 AM EDT 12/01/2024 10:25 AM EDT [facility] - 12/01/2024 1:34 PM EDT Free T4 Trimester Specific Ranges 1st Trimester 0.9 - 1.50 ng/dL 2nd Trimester 0.7 - 1.40 ng/dL 3rd Trimester 0.7 - 1.24 ng/dL Cari Douglas BIOPROCESSING MANUFACTURING TECHNICIAN LAB BLOOD ORDERABLES Mary Anne l Result Performing Organization Address [facility] [place] [address] * Vitamin B1, Whole Blood (12/01/2024 10:22 AM EDT) VITAMIN B1, WHOLE BLOOD 105 70 - 180 nmol/L 12/04/2024 8:36 AM EDT [facility] ([facility]) Blood Venous blood specimen / Unknown Venipuncture / Unknown 12/01/2024 10:22 AM EDT 12/01/2024 10:25 AM EDT Narrative [facility] ([facility]) - 12/04/2024 8:36 AM EDT INTERPRETIVE INFORMATION: Vitamin B1, Whole Blood This assay measures the concentration of thiamine diphosphate (TDP), the primary active form of vitamin B1. Approximately 90 percent of vitamin B1 present in whole blood is TDP. Thiamine and thiamine monophosphate, which comprise the remaining 10 percent, are not measured. This test was developed and its performance characteristics determined by [facility]. It has not been cleared or approved by the US Food and Drug Administration. This test was performed in a CLIA certified laboratory and is intended for clinical purposes. Performed By: [facility] [address] [place] [address] Spray Stainer: Maynor Scott MD, PhD CLIA Number: [id number] Cari Douglas BIOPROCESSING MANUFACTURING TECHNICIAN LAB BLOOD ORDERABLES Mary Anne l Result Performing Organization Address City/[facility]/ZIP Co de Phone Number [facility] [address] [place] [address] * Iron, Plasma (12/01/2024 10:22 AM EDT) Iron, Plasma 76 30 - 160 ug/dL 12/01/2024 1:34 PM EDT [facility] Blood Venous blood specimen / Unknown Venipuncture / Unknown 12/01/2024 10:22 AM EDT 12/01/2024 10:25 AM EDT Cari Douglas [facility] LAB BLOOD ORDERABLES Mary Anne l Result [facility] [address] [place] [address] * Hemoglobin A1c (12/01/2024 10:22 AM EDT) Hemoglobin A1c 5.0 <5.7 % 12/01/2024 3:20 PM EDT [facility] Blood Venous blood specimen / Unknown Venipuncture / Unknown 12/01/2024 10:22 AM EDT 12/01/2024 10:25 AM EDT Narrative [facility] - 12/01/2024 3:20 PM EDT HA1C Interpretive Data: Diagnosis of Diabetes: Diabetic > or = 6.5% Pre-diabetic 5.7 to 6.4% Non-diabetic < or = 5.6% Glycemic Targets for Type I and Type II Diabetics: Non- Adults <7.0% Adults <6.0% Children and Adolescents <7.5% Source: [place] [employer]. Standards of medical care in diabetes,2017. Diabetes Care.2017:40 (suppl 1):S1-S135. Cari Douglas BIOPROCESSING MANUFACTURING TECHNICIAN LAB BLOOD ORDERABLES Mary Anne l Result Performing Organization Address City/[facility]/ZIP Co de Phone Number [facility] [address] [place] [address] * Folate, Serum (12/01/2024 10:22 AM EDT) Folate, Serum 13.5 >4.6 ng/mL 12/01/2024 1:40 PM EDT [facility] Blood Venous blood specimen / Unknown Venipuncture / Unknown 12/01/2024 10:22 AM EDT 12/01/2024 10:25 AM EDT Cari Douglas BIOPROCESSING MANUFACTURING TECHNICIAN LAB BLOOD ORDERABLES Mary Anne l Result Performing Organization Address City/[facility]/ZIP Co de Phone Number [facility] [address] [place] [address] * Vitamin B12, Serum (12/01/2024 10:22 AM EDT) Vitamin B12, Serum 399 210 - 1,033 pg/mL 12/01/2024 1:40 PM EDT [facility] Blood Venous blood specimen / Unknown Venipuncture / Unknown 12/01/2024 10:22 AM EDT 12/01/2024 10:25 AM EDT Carihollie Douglas BIOPROCESSING MANUFACTURING TECHNICIAN LAB BLOOD ORDERABLES Mary Anne l Result Performing Organization Address City/[facility] Co de Phone Number [facility] [address] [place] [address] * (ABNORMAL) Lipid Profile, Plasma (12/01/2024 10:22 AM EDT) Cholesterol, Plasma 185 <200 mg/dL 12/01/2024 1:34 PM EDT [facility] Comment: Cholesterol Reference Range (age >17 years): Desirable <200 mg/dL Borderline 200 to 239 mg/dL Undesirable >239 mg/dL HDL 56 >=50 mg/dL 12/01/2024 1:34 PM EDT [facility] Comment: HDL Cholesterol Reference Ranges (age >17 years): Female, acceptable > or = 50 mg/dL Male, acceptable > or = 40 mg/dL Triglycerides, Plasma 97 <150 mg/dL 12/01/2024 1:34 PM EDT [facility] Comment: Triglyceride Reference Range (age >17 years): Desirable: <150 mg/dL Borderline high: 150 to 199 mg/dL High: 200 to 499 mg/dL Very high: >499 mg/dL Increased risk of pancreatitis: >1000 mg/dL Cholesterol/HDL Ratio 3 12/01/2024 1:34 PM EDT [facility] LDL, Calculated 111(H) <100 mg/dL 1:34 PM EDT [facility] Comment: LDL Cholesterol Reference [...] 12 hours? Yes 12/01/2024 1:34 PM EDT [facility] Blood Venous blood specimen / Unknown Venipuncture / Unknown 12/01/2024 10:22 AM EDT 12/01/2024 10:25 AM EDT us Cari Douglas APRN LAB BLOOD ORDERABLES Mary Anne cancino Result [facility] [address] [place] [address] * Comprehensive Metabolic Panel, Plasma (12/01/2024 10:22 AM EDT) Pathologist [facility] Glucose, Plasma 86 74 - 99 mg/dL 12/01/2024 1:34 PM EDT [facility] BUN, Plasma 11 7 - 21 mg/dL 12/01/2024 1:34 PM EDT [facility] Creatinine, Plasma 0.76 0.60 - 1.10 mg/dL 12/01/2024 1:34 PM EDT [facility] BUN/Creatinine Ratio 14 12/01/2024 1:34 PM EDT [facility] Sodium, Plasma 137 136 - 145 mmol/L 12/01/2024 1:34 PM EDT [facility] Potassium, Plasma 4.0 3.6 - 4.9 mmol/L 12/01/2024 1:34 PM EDT [facility] Chloride, Plasma 104 97 - 107 mmol/L 12/01/2024 1:34 PM EDT [facility] CO2, Plasma 24 22 - 29 mmol/L 12/01/2024 1:34 PM EDT [facility] Anion Gap 9 6 - 16 mmol/L 12/01/2024 1:34 PM EDT [facility] Total Calcium, Plasma 9.5 8.9 - 10.2 mg/dL 12/01/2024 1:34 PM EDT [facility] Total Protein 7.2 6.3 - 7.9 g/dL 12/01/2024 1:34 PM EDT [facility] Albumin, Plasma 4.5 3.5 - 5.2 g/dL 12/01/2024 1:34 PM EDT [facility] AST, Plasma 15 10 - 35 U/L 12/01/2024 1:34 PM EDT [facility] ALT, Plasma 17 10 - 35 U/L 12/01/2024 1:34 PM EDT [facility] Alkaline Phosphatase, Plasma 73 35 - 104 U/L 12/01/2024 1:34 PM EDT [facility] Total Bilirubin, Plasma 0.3 0.2 - 1.1 mg/dL 12/01/2024 1:34 PM EDT [facility] eGFRcr 111.0 mL/min/1.7 3m*2 12/01/2024 1:34 PM EDT [facility] Comment:Reported eGFRcr in m L/min/1.73m2 is based the CKD-EPI 2020 equation that does not use a race coefficient. Blood Venous blood specimen / Unknown Venipuncture / Unknown 12/01/2024 10:22 AM EDT 12/01/2024 10:25 AM EDT us Cari Douglas BIOPROCESSING MANUFACTURING TECHNICIAN LAB BLOOD ORDERABLES Mary Anne cancino Result [facility] [address] [place] [address] * MR Pelvis wo IV Contrast (09/16/2024 9:20 AM EDT) Anatomical Region Laterality Modality Abdomen Magnetic Resonan ce Impressions 09/16/2024 11:59 AM EDT No erosive changes or evidence of sacroiliitis. On the T1 large field of view series there is there is a heterogenous signal within a focally ectatic left common iliac vein measuring up to 2.9 cm, which may reflect underlying May Thurner syndrome, CT/MR angiography/venography of the abdomen and pelvis is recommended for full characterization. CRITICAL RESULT: No. COMMUNICATION: Per this written report. By electronically signing this report, I, the attending physician, attest that I have personally reviewed the images/data for the above examination(s) and agree with the final edited report. Drafted by Bienvenido Russo MD on 09/16/2024 9:50 AM Final report signed by Son Lara MD on 09/16/2024 11:59 AM Narrative 09/16/2024 11:59 AM EDT CLINICAL INDICATION: Bone mass or bone pain, pelvis, aggressive features on xray TECHNIQUE: Multiplanar multiecho sequences were obtained utilizing T1 and T2 weighting without the administration of intravenous contrast. . COMPARISON: Radiographs of the spine 08/16/2024 and sacroiliac joint radiographs FINDINGS: Bone and Bone Marrow: No acute fracture or dislocation. No insufficiency or stress fractures. No signal abnormalities within bilateral sacroiliac joints. Soft Tissues: Anteverted anteflexed uterus with IUD in lower uterine body position. Bilateral ovarian follicles, physiologic. On the T1 large field of view series there is there is a heterogenous signal within a focally ectatic left common iliac vein measuring up to 2.9 cm (series 3, image 12). Procedure Note Son Lara MD - 09/16/2024 CLINICAL INDICATION: Bone mass or bone pain, pelvis, aggressive features on xray TECHNIQUE: Multiplanar multiecho sequences were obtained utilizing T1 and [id number] without the administration of intravenous contrast. . COMPARISON: Radiographs of the spine 08/16/2024 and sacroiliac joint radiographs FINDINGS: Bone and Bone Marrow: No acute fracture or dislocation. No insufficiencyor stress fractures. No signal abnormalities within bilateral sacroiliacjoints. Soft Tissues: Anteverted anteflexed uterus with IUD in lower uterine bodyposition. Bilateral ovarian follicles, physiologic. On the T1 large fieldof view series there is there is a heterogenous signal within a focallyectatic left common iliac vein measuring up to 2.9 cm (series 3, image12). IMPRESSION: No erosive changes or evidence of sacroiliitis. On the T1 large field of view series there is there is a heterogenoussignal within a focally ectatic left common iliac vein measuring up to 2.9cm, which may reflect underlying May Thurner syndrome, CT/MRangiography/venography of the abdomen and pelvis is recommended for fullcharacterization. CRITICAL RESULT: No. COMMUNICATION: Per this written report. By electronically signing this report, I, the attending physician, attestthat I have personally reviewed the images/data for the aboveexamination(s) and agree with the final edited report. Drafted by Bienvenido Russo MD on 09/16/2024 9:50 AM Final report signed by Son Lara MD on 09/16/2024 11:59 AM Nina Hernández BIOPROCESSING MANUFACTURING TECHNICIAN [facility] MRI PROCEDURES Final Result * Referred ThinPrep Pap and HPV (SO) (05/26/2024 1:40 PM EST) Pap, Source Cx/Vagina 06/03/2024 5:57 PM EST [facility] ([facility]) EER Referred ThinPrep Pap and HPV See Note 06/03/2024 5:57 PM EST [facility] ([facility]) PAP, THINPREP Normal 06/03/2024 5:57 PM EST [facility] ([place]) High Risk HPV Normal 06/03/2024 5:57 PM EST [facility] ([place]) Swab Vaginal and cervical cytologic material / Unknown Non-blood Collection / Unknown 05/26/2024 1:40 PM EST 05/27/2024 11:08 AM EST Narrative [facility] JILLIAN) - 06/03/2024 5:57 PM EST Authorized individuals can access the [facility] Enhanced Report with an [facility] Connect account using the following link. Your local lab can assist you in obtaining the patient report if you don't have a Connect account. [email or web address] Performed By: [facility] [address] [place] [address] Spray Stainer: Maynor Scott MD, PhD CLIA Number: [id number] SPECIMEN PART A. Cervical, Endocervical, Vaginal, ThinPrep Pap (Anode Worker) CYTOLOGY HX Date of Last Menstrual Period: n FINAL DIAGNOSIS INTERPRETATION: Negative for Intraepithelial Lesion or Malignancy. SPECIMEN ADEQUACY:Satisfactory for evaluation. Endocervical/transformation zone component present. ADDITIONAL FINDINGS:Fungal organisms consistent with Caridad spp. Electronically Signed Out : Myrna Villanueva Performed by: [facility] [address] [place] [address] [place] [address] Paty Paz MD, HR-HPV: Negative Test performed by the FDA-approved Hologic (Gen-Probe) APTIMA HPV test, which detects HPV genotypes: 16, 18, 31, 33, 35, 39, 45, 51, 52, 56, 58, 59, 66, and 68. This assay has been cleared for the specimen types listed below. Other specimen types have not been validated for this assay. -Clinician-collected ThinPrep Pap specimens. Performed by: [facility] [address] [place] [address] Paty Paz MD, us Kehinde Bowie MD LAB REF LAB BLOOD AND FLUID ORD Final Result [facility] ([facility]) [address] [place] [address] * HIV 1 & 2 Antibody/Antigen Screen (07/16/2022 4:03 PM EDT) Pathologist [facility] HIV 1 & 2 Antibody/Antigen Screen Non Reactive Non Reactive 07/16/2022 7:05 PM EDT [facility] Comment:Screening for HIV 1 & 2 antibodies, and P24 antigen is NONREACTIVE. No confirmatory testing is required. Blood Venous blood specimen / Unknown Venipuncture / Unknown 07/16/2022 4:03 PM EDT 07/16/2022 6:10 PM EDT Delmi Vazquez APRN, CNM LAB BLOOD ORDERABLE S Final Result Performing Organization Address City/[facility] Co de Phone Number [facility] [address] [place] [address] * Hepatitis C Antibody (07/16/2022 4:03 PM EDT) [facility] Hepatitis C Antibody Negative Negative 07/16/2022 6:56 PM EDT [facility] Blood Venous blood specimen / Unknown Venipuncture / Unknown 07/16/2022 4:03 PM EDT 07/16/2022 6:10 PM EDT Delmi Vazquez APRN, CNM LAB BLOOD ORDERABLE S Final Result Performing Organization Address City/[facility] Co de Phone Number [facility] [address] [place] [address] from Last 3 Months or Most Recently Relevant to Health Maintenance Additional Health Concerns Active Problems Noted Date Diagnosed Date CPM S22 PP LABOR (OBSTETRICS) 12/06/2022 Insurance ANTHEM Care Teams Manpower Development Specialist Manager Relationship Specialty Start Date End Date Susie Shoemaker DO [address] [place] [address] PCP - General 02/07/21
--- OUTSIDE RECORDS SUMMARY | 2024-12-15 13:37 | XMS_ITS | Referral Summary ---
Author Organization [employer] ([place], [place], [place], [place]) Address [address] [place] [address] Care Team Providers Care Chief Technician Name Role Phone Susie Shoemaker DO Primary Care Provider [phone] Allergies No known active allergies Medications vitamin w/wbyuqli-ecdh-g olate ( PLUS) 27 mg iron- 1 mg Tab Take 1 tablet by mouth in the morning. Active Social History Tobacco Use Types Packs/Day Years Used Date Smoking Tobacco: Never Smokeless Tobacco: Never Tobacco Cessation:Counseling Given: Not Answered Alcohol Use Standard Drinks/Week Comments Never 0 (1 standard drink = 0.6 oz pur e alcohol) Food Insecurity Answer Date Recorded Food run out past 12 months Not on file 04/21 Food did not last past 12 months Not on file 05/09/2023 Employment Answer Date Recorded Help finding and keeping a job Not on file 0 05/09/2023 Family and Community Support Answer Geoffrey e Recorded Help with Day to Day Activities Not on file 05/09/2023 Feeling Lonely or Isolated Not on file 05/09 Educational Attainment Answer Date Kenneth rded Speak language other than Salvadorean at home Not on file 05/09/2023 Want help with school or training Not on file 05/09/2023 Substance Use Answer Date Recorded Used prescription meds for non-medical reasons N ot on file 05/09/2023 Used illegal drugs past 12 months Not on file 05/09/2023 Comments Unknown Sex and Gender Information Value Date Recorded Sex Assigned at Not on file Legal Sex Female 5:39 PM CDT Gender Identity Not on file Sexual Orientation Not on file Last Filed Vital Signs Vital Sign Reading Time Taken Comments Blood Pressure 111/62 07/13/2022 9:30 PM EDT Pulse 65 07/13/2022 9:30 PM EDT Temperature 36.9 C (98.5 F) 07/13/2022 6:45 PM EDT Respiratory Rate 19 07/13/2022 9:30 PM EDT Oxygen Saturation 100% 07/13/2022 9:30 PM EDT Inhaled Oxygen Concentration - - Weight 99.8 kg (220 lb) 07/13/2022 6:45 PM EDT Height 160 cm (5' 3 ) 07/13/2022 6:45 PM EDT Body Mass Index 38.97 07/13/2022 6:45 PM EDT Plan of Treatment Not on file Insurance [place] [id number] BLUE CROSS/BLUE SHIELD Care Teams Chief Technician Relationship Specialty Start Date End Date Susie Shoemaker, [address] [place] [address] PCP - General Family Medicine 07/13/22
--- OUTSIDE RECORDS SUMMARY | 2024-12-15 13:37 | XMS_ITS | Clinical Summary ---
Author Organization [employer] ([place], [place], [place], [place]) Address [address] [place] [address] Care Team Providers Care Card Player Name Role Phone Susie Shoemaker DO Primary Care Provider [phone] Allergies No known active allergies Medications vitamin w/bswbauh-qucs-b olate ( PLUS) 27 mg iron- 1 [...] Date Kenneth rded Speak language other than American at home Not on file 05/09/2023 Want [...] 07/13/2022 6:45 PM EDT Plan of Treatment Health Maintenance Due Date Last Done Comments Depression Screening (12+) 2010 HIV Screening 2013 Hepatitis C Screening 01/16/2016 Lipid Panel 2018 Pap Smear 2019 Tobacco Cessation Counseling and Screening (12+) 07/14/2023 07/13/2022 COVID-19 VACCINE ( - 2023-2 5 season) 2023 Influenza Vaccine (#1) 2024 DTAP/TDAP/TD VACCINES (3 - T d or Tdap) 11/27/2030 11/27/2020, 11/03/2018 Pneumococcal Vaccine: 0-49 Years Aged Out No longer eligible b ased on patient's age to complete this topic Insurance [place] [id number] BLUE CROSS/BLUE SHIELD Care Teams Card Player Relationship Specialty Start Date End Date Susie Shoemaker, DO [address] [facility] [address] [place] [address] PCP - General Family Medicine 07/13/22
--- OUTSIDE RECORDS SUMMARY | 2024-12-15 13:37 | XMS_ITS | Encounter Summary ---
Author Organization [facility] Address [address] [place] [address] Care Team Providers Care Connection Worker Name Role Phone Susie Shoemaker DO Primary Care Provider Encounter Details Date Type Department Care Team (Late st Contact Info) Description 12/05/2024 Orders Only [facility] [address] [place] [address] Cari Douglas, DESIGN VERIFICATION ENGINEER [address] [address] Social History Tobacco Use Types Packs/Day Years Used Date Smoking Tobacco: Never Passive Smoke Exposure: Never Smokeless Tobacco: Former Quit: 11/22/2024 Comments:Stopped vaping magnolia jeanine 11/22 Alcohol Use Standard Drinks/Week Comments Not Currently 0 (1 standard drink = 0.6 oz pur e alcohol) PHQ-2 Answer Date Recorded Patient Health Questionnaire-2 Score 0 12/01/2024 [place] Depression Scale Answer Date Recorded [place] Depression Scale Total 2 04/02/2023 The thought [...] Description 02/21/2025 7:50 AM EST Office Visit [facility] [address] [place] [address] Nina Hernández, DESIGN VERIFICATION ENGINEER [address] [place] [address] 02/22/2025 10:40 AM EST Office Visit [facility] [address] [place] [address] Monico Staley MD [address] [place] [address] 05/31/2025 9:45 AM EST Procedure Visit Obstetrics & Gynecology [address] [place] [address] Kehinde Bowie MD [address] [place] [address] documented as of this encounter [...] documented as of this encounter Care Teams Connection Worker Relationship Specialty Start Date End Date Susie Shoemaker DO [address] [place] [address] PCP - General 02/07/21 documented as of this encounter
== END 2024-12-15 23:59 | disposition home or self-care (01) ==
PROVIDERS: PCP Family Medicine
DX: R69 Illness, unspecified (principal)